=== PATIENT | female | born 1950 | race Caucasian/White ===

== ENCOUNTER 2020-10-05 08:56 | Outpatient (CLI) | payer MEDICARE, OTHER, SELFPAY ==
--- NOTE | 2020-10-05 09:02 | MM_ITS ---
WS: [id number] Exam: [id number] Date/Time of Exam: 10/05/2020 9:03 AM Reason For Exam: SCREENING VIEWS: MLO and CC views both breasts. Comparison made with prior exam of 04/13/2017 and 04/25/2018, 05/29/2019. Findings: There was no sign of mass, architectural distortion or suspicious calcification in either breast. Fa [place]ty MM/[id number] Impression: BI-RADS: 2-Benign FOLLOW-UP: 1 Year Follow-up This mammogram was also analyzed by the Computer Aided Detection System R2 Imag e Solvent Recoverer.
== END 2020-10-05 08:57 | disposition home or self-care (01) ==
LOC: RADSHAW 09:00
PROVIDERS: PCP Internal Medicine; Visit Provider Internal Medicine
DX: Z12.31 Encounter for screening mammogram for malignant neoplasm of breast (principal)
CPT/HCPCS: 77067

== ENCOUNTER 2021-10-27 09:20 | Outpatient (CLI) | payer MEDICARE, OTHER, SELFPAY ==
--- NOTE | 2021-10-27 09:27 | MM_ITS ---
WS: [id number] Bilateral screening 3D tomosynthesis digital mammogram, 10/27/2021 Clinical Data: SCREENING Comparison: 10/05/2020, 05/29/2019, 04/25/2018, 04/13/2017, 03/30/2016, 03/25/2015, 03/18/2014, 3, 02/28/2012, 02/15/2011, 02/10/2010, 02/05/2029, 01/31/2008, 01/29/2007, 01/26/2006. Findings: The breast parenchymal pattern shows fibroglandular tissue. No spiculated masses or clustered calcifi cations are seen. There are no secondary signs of carcinoma. MM/[id number] Impression: 1. Negative bilateral mammogram unchanged. 2. Recommend annual screening mammograms. BIRADS: 1-Negative FOLLOW UP: 1 Year Follow-up The CAD grade checker was used.
== END 2021-10-27 09:21 | disposition home or self-care (01) ==
LOC: RAD 09:23
PROVIDERS: PCP Internal Medicine; Visit Provider Internal Medicine
DX: Z12.31 Encounter for screening mammogram for malignant neoplasm of breast (principal)
CPT/HCPCS: 77063; 77067

== ENCOUNTER 2022-02-02 10:51 | Outpatient (CLI) | payer MEDICARE, OTHER, SELFPAY ==
--- NOTE | 2022-02-02 11:05 | CT_ITS ---
WS: [id number] CT ABDOMEN WITH CONTRAST HISTORY: ELEVATED TRANSAMINASE LEVEL Contiguous single phase 5 mm axial imaging performed to the abdomen. Oral contrast has not been provi ded. Coronal and sagittal reformats are submitted. All CT scans at [facility] use at least on e of these dose optimization techniques: automated exposure control; mA and/or kV adjustment per brice ent size (includes targeted exams where dose is matched to clinical indication); or iterative reconst ruction. CONTRAST: Omnipaque 350; 75 mL IV. DLP: 489.77 mGy.cm COMPARISON: None available. Lower thorax: Lung bases are clear. No cardiomegaly. Liver: Liver extends over length of 17.2 cm. Tim's lobe is evident. There is marked intrahepatic d uct dilatation involving both lobes. No hepatic mass. Portal vein is normally enhancing. Gallbladder: Gallbladder is mildly hydropic extending over length of 9.3 cm. There is very mild gallb ladder wall thickening and enhancement but no mass. Cystic duct is dilated. Common bile duct is dilat ed. Common bile duct measures up to 11.7 mm in diameter. Seen best on the 1 mm reformatted images is a mildly enhancing soft tissue mass in the common bile d uct at the level of the cystic duct confluence. This area of increased enhancement measures 7 x 10 mm . This extends towards the pancreatic head and is contiguous with the fullness in the pancreatic head . Pancreas: There is mild fullness at the pancreatic head. Fullness at the pancreatic head with very sl ight increased enhancement measures 18 x 19 mm. This is asymmetric to the remaining pancreatic body w hich is small caliber. The pancreatic duct is dilated diffusely but only up to 2 mm. Spleen: Normal. Adrenals: Mild thickening of the LEFT adrenal gland. Normal RIGHT adrenal gland. Right kidney: Normal. Left kidney: Too small to characterize hypodensities within the cortex of the visualized kidney. No obstruction. Small extrarenal pelvis. Aorta: Atherosclerotic changes in the aorta. No aneurysm. GI tract: Minimally distended stomach with fluid. No small bowel obstruction. The duodenal C-loop is not opacified with contrast. No obstruction is evident. No definite lymph nodes are identified. Abdominal wall: No hernia. Visualized osseous structures: Unremarkable. CT/CT abdomen w con* [id number] IMPRESSION: 1. Marked intrahepatic and extrahepatic bile duct dilatation. Enhancing lesion measuring 7 x 10 mm in the mid common bile duct just distal to the cystic duct origin. 2. Marked fullness in very slight increased enhancement at the pancreatic head . Suspicious for pancreatic head mass measuring 18 x 19 mm. Suspect this mass e xtends into the common bile duct contributing to the duct dilatation. 3. Gallbladder hydrops. Distended gallbladder with a cystic duct obstruction. Obstruction secondary to a distal CBD duct lesion. 4. ERCP would be most helpful at this time. Notified Ernie Rowe DO at 02/02/2022 12:15 PM.
[2022-02-02] MEDS: iohexol 350 mg/mL 100 mL Btl IV (11:21)
== END 2022-02-02 10:52 | disposition home or self-care (01) ==
PROVIDERS: PCP Internal Medicine; Visit Provider Internal Medicine
DX: R74.01 Elevation of levels of liver transaminase levels (principal)
CPT/HCPCS: 74160

== ENCOUNTER → 2022-04-19 13:02 | Outpatient (BNVA) | payer MEDICARE, OTHER, SELFPAY | PROVIDERS: PCP Internal Medicine; Visit Provider Surgery | DX: C25.9 Malignant neoplasm of pancreas, unspecified (principal) | CPT/HCPCS: 99203 ==

== ENCOUNTER 2022-04-21 09:35 | Day surgery (SDC) | payer MEDICARE, OTHER, SELFPAY ==
--- NOTE | 2022-04-21 | SCC_ITS ---
Procedure done: Mediport insertion 2.6 seconds of fluoroscopic guidance, for a cumulative dose of 0.3 mGy, was provided to Dr. Manuel by the radiology department. C-arm images of the chest were saved for the patient's permanent record. [facility]
[2022-04-21 10:01] VITALS: BP 182/111; PULSE 69; RESP 118; TEMP 36.6; O2SAT 98
[2022-04-21] MEDS: sodium chloride 0.9% 1,000 ML 30 ML IV (10:05)
--- NOTE | 2022-04-21 10:16 | SC_ITS ---
WS: [id number] C-ARM RADIOGRAPHS CHEST; 2 IMAGES HISTORY: Intraoperative imaging COMPARISON: None available. Intraoperative imaging during LEFT Mediport placement. Tip overlies the distal SVC. SC/C-arm [place] CVA [id number] IMPRESSION: Intraoperative imaging during Mediport placement.
--- NOTE | 2022-04-21 10:22 | XR_ITS ---
WS: [email or web address] Portable AP upright chest, 04/21/2022 Clinical Data: post-op Comparison: None. Findings: No nodules, masses or effusions are seen. The heart is normal. The pulmonary vascularity is not increased. No pneumonia or pneumothorax is seen. The aortic arch and descending thoracic aorta s how mild tortuosity. There is a left subclavian catheter in good position ending in the superior vena cava. There is a right biliary stent in the upper abdomen. XR/XR chest 1V portable [id number] Impression: Atherosclerosis.
--- NOTE | 2022-04-21 10:24 | P.ANESASSM_ITS ---
Pre-Anesthetic Assessment Height/Weight: Height 1.63 m Weight 53.07 kg Temp Pulse Resp BP Pulse Ox O2 Del Method 97.9 F 69 118 H 182/111 98 04/21/22 10:01 04/21/22 10:01 04/21/22 10:01 04/21/22 10:01 04/21/22 10:01 04/21/22 10:01 Preop Diagnosis: Pancreatic Cancer Operation Date: 04/21/22 10:50 Proposed Procedures p Portacath Placement 33694,C25.9(Not Applicable) - Valeriano Manuel DO Familial anesthetic complications: PONV Was Beta Tracie taken within 24 hours: N/A Was Clonidine taken within 24 hours: N/A Last intake: Intake Last Liquid Date 04/20/22 Last Liquid Time 19:00 Last Solid Date 04/20/22 Last Solid Time 19:00 Social No alcohol and No tobacco Exam alert, oriented x 3, clear to auscultation bilaterally and regular rate & rhythm Airway Submandibular: within normal limits Cervical ROM: within normal limits Mallampati: Class II Dentition: full Hepatic Pancreatic CA Anesthetic Plan ASA status: 2 Anesthesia: MAC Medications/Allergies Home Medications Medication Instructions Recorded Confirmed Last Taken Type aloe vera 25 mg capsule 25 mg PO DAILY 01/22/21 04/20/22 04/20/22 History herbal drugs 3 tab PO DAILY 01/22/21 04/21/22 04/20/22 History fluticasone propionate 50 1 spray intranasal DAILY 04/13/22 04/20/22 04/20/22 History mcg/actuation nasal spray,suspension (Flonase Allergy Relief) Allergies Allergy/AdvReac Type Severity Reaction Status Date / Time Opioids - Morphine Analogues Allergy Intermediate vomiting Verified 04/20/22 11:38 codeine AdvReac constipatio Verified 04/20/22 11:38 n Current Medications Generic Name Dose Route Start Last Admin Trade Name Freq PRN Reason Stop Dose Admin Sodium Chloride 1,000 mls @ 30 mls/hr 04/21/22 10:00 04/21/22 10:05 Sodium Chloride 0.9% IV 04/22/22 09:59 30 mls/hr .Q24H JONATHAN Administration PFSH Anesthesia Medical History Broken jessica 1974. [facility] FH: total abdominal hysterectomy and bilateral salpingo-oophorectomy Ovarian cancer staging, frozen section of the ovary, pelvic washings, bilateral pelvic lymph node sampling, appendectomy, peritoneal biopsies, partial omentectomy, sheron-diaphragm scrapings, and left ureterolysis. Performed by Dr. 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 Surgical staging performed in 01/2002. Patient received 6 courses of chemotherapy (Taxol/carboplatinum) completed in 06/2002 Hypertension with stress and pain only Surgical History H/O arthroscopy of knee right, torn ligament. Surgery at [facility] in [place], [place] H/O exploratory laparotomy Adhesiolysis for treatment of small bowel obstruction. [place] [facility]. Pacheco [place] [facility] H/O right knee surgery miniscus repair History of tonsillectomy 1970, with adenoidectomy Hx of rectal sphincterotomy anal fissure repair-1987 [place], [place] Family History Family/Other Breast cancer Paternal Aunt Colon cancer Paternal Aunt Sister Breast cancer Mother Transient ischemic attack Father Heart disease Denies family history of Diabetes CAD (coronary artery disease) Clotting disorder Hyperlipidemia Chronic kidney disease (CKD) Bleeding disorder Hypertension Stroke Social History Smoking and tobacco status: never smoked Data Anesthesia Cardiac Studies: No Data to Display
--- NOTE | 2022-04-21 10:25 | W.PM.OPSUD ---
Surgery/Procedure H&P Update DATE OF PROCEDURE: April 21, 2022 DATE H&P PERFORMED: 04/19/22 PREOP DIAGNOSIS: Pancreatic Cancer PLANNED PROCEDURE: Operation Date: 04/21/22 10:50 Proposed Procedures p Portacath Placement 97064,C25.9(Not Applicable) - Valeriano Manuel DO
[2022-04-21] MEDS: ceFAZolin 2,000 MG in sodium chloride 0.9% (plus) 50 ML 100 MG IV (10:35)
[2022-04-21] MEDS: sodium chloride 0.9% 250 mL Bag 100 ML XX (10:49)
[2022-04-21] MEDS: heparin, porcine 1,000 unit/mL INJ 10 mL 10000 UNIT INJECTION (10:49)
--- NOTE | 2022-04-21 11:11 | PM.OP ---
Operative Report Date of procedure: April 21, 2022 Pre-op diagnosis: Preop Diagnosis Pancreatic Cancer Post-op diagnosis: same Procedure done: Mediport insertion Implants: PowerPort Surgeon: Dr. Valeriano Manuel, DO Anesthesia: MAC Estimated blood loss (mL): 5 Complications: None apparent Brief History: This is a very pleasant 71-year-old female who was recently diagnosed with pancreatic cancer. Mediport insertion was indicated. Risks and benefits were explained and documented. Procedure: The Patient was taken to the operating room and placed supine on the operating room table. All bony prominences were padded. She was given IV sedation and monitored throughout the case by the anesthesia personnel. SCDs were placed and turned on. The arms were tucked to the side. Patient received Ancef 2 g preoperatively IV. The bilateral chest wall was prepped and draped in usual sterile fashion using chlorhexidine base prep. Sterile drapes were applied. We did procedure pause prior to beginning. An 18 gauge needle was placed in the right/left subclavian vein. Dark, nonpulsatile blood was aspirated. A guidewire was placed through the needle centrally toward the atrial/vena caval junction. Fluoroscopy visualized good placement. The needle was removed and the guidewire was clipped to the drape with a hemostat. Further local anesthetic was infiltrated in the soft tissues of the right/left chest wall and a #15 blade was used to make a horizontal skin incision. A subcutaneous Mediport pocket was created using Bovie cautery, dissecting down through the skin and subcutaneous tissues. Meticulous hemostasis was achieved. The Mediport was sutured in position using 3-0 vicryl suture x2 stitches.
[2022-04-21 11:12] VITALS: BP 138/81; PULSE 63; RESP 17; TEMP 36.5; O2SAT 97
[2022-04-21 11:15] VITALS: BP 154/72; PULSE 60; RESP 17; O2SAT 99
[2022-04-21 11:20] VITALS: BP 164/85; PULSE 62; RESP 17; TEMP 36.4; O2SAT 98
[2022-04-21 11:42] VITALS: RESP 18; O2SAT 99
[2022-04-21 11:45] VITALS: BP 178/87; PULSE 62; RESP 18; TEMP 36.5; O2SAT 98
--- NOTE | 2022-04-21 15:36 | ANE.PACU2 ---
Inpatient post-anesthesia follow up: Airway intact: Yes Vital signs: Temperature 97.7 F Pulse Rate 62 Respiratory Rate 18 Blood Pressure 178/87 Pulse Oximetry 98 Oxygen Delivery Me thod Room Air Oxygen Flow Rate Fraction of Inspir ed Oxygen Hydration adequate: Yes Nausea and vomiting: No Pain level: 2 Mental status: Baseline
== END 2022-04-21 12:15 | disposition home or self-care (01) ==
PROVIDERS: Family Provider Internal Medicine Hematology & Oncology; PCP Internal Medicine; Visit Provider Surgery
PROC: (CPT 36561; principal; 2022-04-21 10:50)
DX: C25.9 Malignant neoplasm of pancreas, unspecified (principal); I10 Essential (primary) hypertension
CPT/HCPCS: 36561; 71045; 76000; 77001; C1788; J0690; J1100; J1200; J1644; J2405; J2704; J3010; J7030; J7050

== ENCOUNTER 2022-05-10 09:00 | Oncology outpatient (recurring) (ONCR) | payer MEDICARE, OTHER, SELFPAY ==
[2022-04-25 09:27] LABS: Basophils # 0.1 10^3/uL (0.0-0.1); Basophils % 0.7 %; Eosinophils # 0.1 10^3/uL (0.0-0.8); Eosinophils % 1.7 %; Hematocrit 43.2 % (37.0-47.0); Hemoglobin 13.9 g/dL (11.5-15.3); Lymphocytes # 1.3 10^3/uL (0.8-4.8); Lymphocytes % 18.1 %; Mean Corpuscular HGB Conc 32.2 g/dL (30.0-36.0); Mean Corpuscular Hemoglobin 29.1 pg (28.0-34.0); Mean Corpuscular Volume 90.4 fl (81-99); Mean Platelet Volume 11.8 fL (7.4-10.4); Monocytes # 0.4 10^3/uL (0.2-0.9); Monocytes % 6.1 %; Neutrophils # 5.27 10^3/uL (1.8-7.7); Neutrophils % 73.1 %; Nucleated Red Blood Cells % 0 %; Platelet Count 170 10^3/cmm (130-400); Red Blood Count 4.78 10^6/uL (4.1-5.3); Red Cell Distribution Width 13.2 % (12.1-15.1); White Blood Count 7.2 10^3/uL (4.0-10.0)
[2022-04-25 10:13] LABS: Alanine Aminotransferase 30 U/L (0-33); Albumin Level 3.8 g/dL (3.5-5.2); Alkaline Phosphatase 220 U/L (35-105); Anion Gap 12.7 (5-19); Aspartate Amino Transferase 30 U/L (0-32); Blood Urea Nitrogen 18 mg/dL (8-23); CA 125 18.7 U/mL (0-35); Calcium 9.5 mg/dL (8.5-10.5); Cancer Antigen 19 9 8.08 U/mL (0-35); Carbon Dioxide 28 mmol/L (22-29); Chloride 97 mmol/L (98-107); Globulin 3.4 g/dL (1.3-4.6); Glucose 219 mg/dL (65-115); Osmolality Calculated 287 mOsm/kg (285-295); Potassium 3.7 mmol/L (3.5-5.1); Sodium 134 mmol/L (136-145); Total Bilirubin 0.9 mg/dL (0.15-1.2); Total Protein 7.2 g/dL (6.6-8.7)
[2022-04-25] MEDS: sodium chloride 0.9% 250 ML 100 ML IV (10:44)
[2022-04-25] MEDS: palonosetron 0.25 mg/5 mL SDV IVP (10:44)
[2022-04-25] MEDS: famotidine 20 mg/2 mL INJ IVP (10:45)
[2022-04-25] MEDS: paclitaxel protein-bound 190 MG in empty flexible container 1 EACH 76 MG IV (11:12)
[2022-04-25] MEDS: gemcitabine 1,600 MG in sodium chloride 0.9% (100 ml) 100 ML 200 MG IV (11:55)
[2022-04-25 12:41] VITALS: BP 179/96; PULSE 74; RESP 16; TEMP 36.7; O2SAT 98
[2022-05-02 09:54] LABS: Basophils # 0.1 10^3/uL (0.0-0.1); Basophils % 1.1 %; Eosinophils # 0.1 10^3/uL (0.0-0.8); Eosinophils % 3.2 %; Hematocrit 40.3 % (37.0-47.0); Lymphocytes # 1.2 10^3/uL (0.8-4.8); Mean Corpuscular HGB Conc 32.3 g/dL (30.0-36.0); Mean Corpuscular Hemoglobin 28.8 pg (28.0-34.0); Mean Corpuscular Volume 89.4 fl (81-99); Monocytes # 0.3 10^3/uL (0.2-0.9); Monocytes % 5.7 %; Neutrophils # 2.72 10^3/uL (1.8-7.7); Neutrophils % 61.8 %; Nucleated Red Blood Cells % 0 %; Platelet Count 165 10^3/cmm (130-400); Red Blood Count 4.51 10^6/uL (4.1-5.3); Red Cell Distribution Width 12.8 % (12.1-15.1); White Blood Count 4.4 10^3/uL (4.0-10.0)
[2022-05-02 10:23] LABS: Alanine Aminotransferase 35 U/L (0-33); Albumin Level 3.5 g/dL (3.5-5.2); Alkaline Phosphatase 190 U/L (35-105); Anion Gap 16.1 (5-19); Aspartate Amino Transferase 24 U/L (0-32); Blood Urea Nitrogen 16 mg/dL (8-23); Calcium 9.2 mg/dL (8.5-10.5); Carbon Dioxide 26 mmol/L (22-29); Chloride 99 mmol/L (98-107); Globulin 3.1 g/dL (1.3-4.6); Glucose 189 mg/dL (65-115); Osmolality Calculated 290 mOsm/kg (285-295); Potassium 4.1 mmol/L (3.5-5.1); Sodium 137 mmol/L (136-145); Total Bilirubin 0.7 mg/dL (0.15-1.2); Total Protein 6.6 g/dL (6.6-8.7)
[2022-05-02 10:29] LABS: Creatinine Clr Calc Pharmacy 55.0333
[2022-05-03] MEDS: sodium chloride 0.9% 250 ML 100 ML IV (10:59)
[2022-05-03] MEDS: palonosetron 0.25 mg/5 mL SDV IVP (11:01)
[2022-05-03] MEDS: famotidine 20 mg/2 mL INJ IVP (11:03)
[2022-05-03] MEDS: dexamethasone 10 mg/mL INJ 12 MG IVP (11:20)
[2022-05-03] MEDS: gemcitabine 1,600 MG in sodium chloride 0.9% (100 ml) 100 ML 200 MG IV (12:32)
[2022-05-03 13:30] VITALS: BP 185/91; PULSE 75; RESP 16; TEMP 36.3; O2SAT 98
[2022-05-03 16:00] LABS: Estmated Average Glucose 114; Hemoglobin A1C 5.6 % (4.0-6.0)
[2022-05-10 09:28] LABS: Basophils % 0.3 %; Eosinophils % 0.6 %; Hematocrit 39.3 % (37.0-47.0); Lymphocytes # 0.8 10^3/uL (0.8-4.8); Mean Corpuscular HGB Conc 33.1 g/dL (30.0-36.0); Mean Corpuscular Hemoglobin 29.1 pg (28.0-34.0); Mean Corpuscular Volume 88.1 fl (81-99); Mean Platelet Volume 10.5 fL (7.4-10.4); Monocytes # 0.6 10^3/uL (0.2-0.9); Monocytes % 18.3 %; Neutrophils # 2.04 10^3/uL (1.8-7.7); Neutrophils % 58.2 %; Nucleated Red Blood Cells % 0 %; Platelet Count 174 10^3/cmm (130-400); Red Blood Count 4.46 10^6/uL (4.1-5.3); Red Cell Distribution Width 13.2 % (12.1-15.1); White Blood Count 3.5 10^3/uL (4.0-10.0)
[2022-05-10 09:47] LABS: Alanine Aminotransferase 392 U/L (0-33); Albumin Level 3.7 g/dL (3.5-5.2); Alkaline Phosphatase 725 U/L (35-105); Aspartate Amino Transferase 324 U/L (0-32); Blood Urea Nitrogen 13 mg/dL (8-23); Calcium 9.2 mg/dL (8.5-10.5); Carbon Dioxide 24 mmol/L (22-29); Chloride 101 mmol/L (98-107); Creatinine Clr Calc Pharmacy 55.0333; Globulin 3.1 g/dL (1.3-4.6); Glucose 112 mg/dL (65-115); Osmolality Calculated 283 mOsm/kg (285-295); Sodium 136 mmol/L (136-145); Total Protein 6.8 g/dL (6.6-8.7)
[2022-05-10] MEDS: sodium chloride 0.9% 250 ML 100 ML IV (10:50)
[2022-05-10] MEDS: famotidine 20 mg/2 mL INJ IVP (10:50)
[2022-05-10] MEDS: palonosetron 0.25 mg/5 mL SDV IVP (10:52)
[2022-05-10] MEDS: paclitaxel protein-bound 190 MG in empty flexible container 1 EACH 76 MG IV (11:11)
[2022-05-10] MEDS: gemcitabine 1,600 MG in sodium chloride 0.9% (100 ml) 100 ML 200 MG IV (11:50)
[2022-05-10 12:44] VITALS: BP 135/76; PULSE 71; TEMP 37.4; O2SAT 97
== END 2022-05-11 23:59 | disposition home or self-care (01) ==
PROVIDERS: PCP Internal Medicine; Visit Provider Internal Medicine Hematology & Oncology
DX: Z51.11 Encounter for antineoplastic chemotherapy (principal); C25.9 Malignant neoplasm of pancreas, unspecified; Z79.52 Long term (current) use of systemic steroids
CPT/HCPCS: 36591; 80053; 83036; 85025; 86301; 86304; 96367; 96375; 96413; 96417; 99204; 99213; 99214; J1100; J2469; J3490; J7050; J9201; J9264

== ENCOUNTER 2022-06-09 09:41 | Oncology outpatient (recurring) (ONCR) | payer MEDICARE, OTHER, SELFPAY ==
[2022-05-25 09:03] LABS: Hematocrit 38.8 % (37.0-47.0); Hemoglobin 12.4 g/dL (11.5-15.3); Mean Corpuscular Hemoglobin 28.6 pg (28.0-34.0); Mean Corpuscular Volume 89.4 fl (81-99); Platelet Count 756 10^3/cmm (130-400); Red Blood Count 4.34 10^6/uL (4.1-5.3); Red Cell Distribution Width 14.4 % (12.1-15.1); White Blood Count 12.4 10^3/uL (4.0-10.0)
[2022-05-25 09:31] LABS: Alanine Aminotransferase 65 U/L (0-33); Albumin Level 3.3 g/dL (3.5-5.2); Alkaline Phosphatase 461 U/L (35-105); Anion Gap 11.2 (5-19); Aspartate Amino Transferase 38 U/L (0-32); Blood Urea Nitrogen 16 mg/dL (8-23); Calcium 9.4 mg/dL (8.5-10.5); Cancer Antigen 19 9 10.49 U/mL (0-35); Carbon Dioxide 31 mmol/L (22-29); Chloride 100 mmol/L (98-107); Globulin 3.3 g/dL (1.3-4.6); Glucose 135 mg/dL (65-115); Osmolality Calculated 289 mOsm/kg (285-295); Potassium 4.2 mmol/L (3.5-5.1); Sodium 138 mmol/L (136-145); Total Bilirubin 0.8 mg/dL (0.15-1.2); Total Protein 6.6 g/dL (6.6-8.7)
[2022-05-25 09:32] LABS: Slide Review Slide Review Perform
[2022-05-25 09:33] LABS: Total Cells Counted 100 (0-100)
[2022-05-25 09:37] LABS: Absolute Neutrophil 6.9 10^3/cmm (1.4-6.5); Absolute Segmented Neutrophil 6.1 10/cmm (1.6-7.1); Band Neutrophils Absolute 0.9 10^3/cmm (0.0-1.2); Eosinophils 0 %; Giant Platelets Trace; Lymphocytes 21 %; Lymphocytes Absolute 3.6 10^3/cmm (1.2-3.4); Monocytes Absolute 1.6 10^3/cmm (0.1-0.6); Platelet Estimate Increased (Normal); Segmented Neutrophils 49 %
[2022-05-25 09:38] LABS: Anisocytosis 1+; Hypochromasia 1+; Macrocytosis 1+; Microcytosis 1+; Poikilocytosis 1+; Polychromasia 1+; Smudge Cells Trace; Spherocytes 1+
[2022-05-25 09:39] LABS: Ovalocytes Trace; Target Cells Trace; Tear Drop Cells Trace
[2022-05-25 09:40] LABS: Burr Cells Trace
[2022-05-25] MEDS: sodium chloride 0.9% 250 ML 100 ML IV (11:27)
[2022-05-25] MEDS: palonosetron 0.25 mg/5 mL SDV IVP (11:28)
[2022-05-25] MEDS: famotidine 20 mg/2 mL INJ IVP (11:28)
[2022-05-25] MEDS: paclitaxel protein-bound 190 MG in empty flexible container 1 EACH 76 MG IV (12:07)
[2022-05-25] MEDS: gemcitabine 1,600 MG in sodium chloride 0.9% (100 ml) 100 ML 200 MG IV (12:46)
[2022-05-25 13:26] VITALS: BP 168/89; PULSE 73; TEMP 36.7; O2SAT 98
[2022-06-01 10:38] VITALS: BP 151/88; PULSE 83; RESP 16; TEMP 36.2; O2SAT 98
[2022-06-01 10:58] LABS: Basophils # 0.1 10^3/uL (0.0-0.1); Basophils % 1.2 %; Eosinophils % 0.6 %; Hematocrit 36.8 % (37.0-47.0); Hemoglobin 11.8 g/dL (11.5-15.3); Lymphocytes # 1.2 10^3/uL (0.8-4.8); Lymphocytes % 19.2 %; Mean Corpuscular HGB Conc 32.1 g/dL (30.0-36.0); Mean Corpuscular Hemoglobin 28.6 pg (28.0-34.0); Mean Corpuscular Volume 89.3 fl (81-99); Mean Platelet Volume 10.4 fL (7.4-10.4); Monocytes # 0.5 10^3/uL (0.2-0.9); Monocytes % 8.4 %; Neutrophils # 4.51 10^3/uL (1.8-7.7); Nucleated Red Blood Cells % 0 %; Platelet Count 417 10^3/cmm (130-400); Red Blood Count 4.12 10^6/uL (4.1-5.3); Red Cell Distribution Width 14.2 % (12.1-15.1); White Blood Count 6.5 10^3/uL (4.0-10.0)
[2022-06-01 11:25] LABS: Alanine Aminotransferase 64 U/L (0-33); Albumin Level 3.6 g/dL (3.5-5.2); Alkaline Phosphatase 304 U/L (35-105); Anion Gap 12.6 (5-19); Aspartate Amino Transferase 52 U/L (0-32); Blood Urea Nitrogen 13 mg/dL (8-23); Calcium 9.3 mg/dL (8.5-10.5); Carbon Dioxide 29 mmol/L (22-29); Chloride 100 mmol/L (98-107); Glucose 139 mg/dL (65-115); Osmolality Calculated 286 mOsm/kg (285-295); Potassium 4.6 mmol/L (3.5-5.1); Sodium 137 mmol/L (136-145); Total Protein 6.6 g/dL (6.6-8.7)
[2022-06-02] MEDS: sodium chloride 0.9% 250 ML 75 ML IV (08:16)
[2022-06-02] MEDS: palonosetron 0.25 mg/5 mL SDV IVP (08:17)
[2022-06-02] MEDS: famotidine 20 mg/2 mL INJ IVP (08:17)
[2022-06-02] MEDS: paclitaxel protein-bound 190 MG in empty flexible container 1 EACH 76 MG IV (09:03)
[2022-06-02] MEDS: gemcitabine 1,600 MG in sodium chloride 0.9% (100 ml) 100 ML 200 MG IV (09:25)
[2022-06-02 09:47] VITALS: BP 153/73; PULSE 82; RESP 18; TEMP 36.8; O2SAT 97
[2022-06-02 10:00] VITALS: BP 149/78; PULSE 78; RESP 18; TEMP 36.6; O2SAT 97
[2022-06-09 10:04] LABS: Basophils # 0.1 10^3/uL (0.0-0.1); Basophils % 1.7 %; Eosinophils # 0.3 10^3/uL (0.0-0.8); Eosinophils % 8.7 %; Hematocrit 34.4 % (37.0-47.0); Hemoglobin 11.2 g/dL (11.5-15.3); Lymphocytes # 1.1 10^3/uL (0.8-4.8); Lymphocytes % 37.6 %; Mean Corpuscular HGB Conc 32.6 g/dL (30.0-36.0); Mean Corpuscular Hemoglobin 28.6 pg (28.0-34.0); Mean Corpuscular Volume 87.8 fl (81-99); Mean Platelet Volume 10.3 fL (7.4-10.4); Monocytes # 0.3 10^3/uL (0.2-0.9); Monocytes % 10.1 %; Neutrophils # 1.23 10^3/uL (1.8-7.7); Neutrophils % 41.2 %; Nucleated Red Blood Cells % 0 %; Platelet Count 162 10^3/cmm (130-400); Red Blood Count 3.92 10^6/uL (4.1-5.3); Red Cell Distribution Width 14.8 % (12.1-15.1)
[2022-06-09 10:25] LABS: Alanine Aminotransferase 89 U/L (0-33); Albumin Level 3.7 g/dL (3.5-5.2); Alkaline Phosphatase 619 U/L (35-105); Anion Gap 10.7 (5-19); Aspartate Amino Transferase 57 U/L (0-32); Blood Urea Nitrogen 11 mg/dL (8-23); Calcium 9.5 mg/dL (8.5-10.5); Carbon Dioxide 30 mmol/L (22-29); Chloride 100 mmol/L (98-107); Globulin 2.8 g/dL (1.3-4.6); Glucose 138 mg/dL (65-115); Osmolality Calculated 286 mOsm/kg (285-295); Potassium 3.7 mmol/L (3.5-5.1); Sodium 137 mmol/L (136-145); Total Bilirubin 0.9 mg/dL (0.15-1.2); Total Protein 6.5 g/dL (6.6-8.7)
== END 2022-06-11 23:59 | disposition home or self-care (01) ==
PROVIDERS: PCP Internal Medicine; Visit Provider Internal Medicine Hematology & Oncology
DX: C25.8 Malignant neoplasm of overlapping sites of pancreas; D70.1 Agranulocytosis secondary to cancer chemotherapy; R74.01 Elevation of levels of liver transaminase levels; Z79.899 Other long term (current) drug therapy
CPT/HCPCS: 36591; 80053; 85007; 85025; 86301; 96367; 96375; 96413; 96417; 99213; 99214; J1100; J2469; J3490; J7050; J9201; J9264

== ENCOUNTER 2022-07-07 08:00 | Oncology outpatient (recurring) (ONCR) | payer MEDICARE, OTHER, SELFPAY ==
[2022-06-16 08:28] LABS: Basophils # 0.1 10^3/uL (0.0-0.1); Basophils % 1.6 %; Eosinophils # 0.5 10^3/uL (0.0-0.8); Eosinophils % 8.2 %; Hematocrit 38.7 % (37.0-47.0); Hemoglobin 12.3 g/dL (11.5-15.3); Lymphocytes # 2.1 10^3/uL (0.8-4.8); Mean Corpuscular HGB Conc 31.8 g/dL (30.0-36.0); Mean Corpuscular Hemoglobin 28.7 pg (28.0-34.0); Mean Corpuscular Volume 90.2 fl (81-99); Mean Platelet Volume 10.3 fL (7.4-10.4); Monocytes # 0.9 10^3/uL (0.2-0.9); Monocytes % 14.2 %; Neutrophils # 2.46 10^3/uL (1.8-7.7); Neutrophils % 40.2 %; Nucleated Red Blood Cells % 0 %; Platelet Count 325 10^3/cmm (130-400); Red Blood Count 4.29 10^6/uL (4.1-5.3); Red Cell Distribution Width 16.3 % (12.1-15.1); White Blood Count 6.1 10^3/uL (4.0-10.0)
[2022-06-16 08:45] LABS: Alanine Aminotransferase 65 U/L (0-33); Albumin Level 3.7 g/dL (3.5-5.2); Alkaline Phosphatase 655 U/L (35-105); Anion Gap 14.9 (5-19); Aspartate Amino Transferase 30 U/L (0-32); Blood Urea Nitrogen 10 mg/dL (8-23); Carbon Dioxide 29 mmol/L (22-29); Chloride 101 mmol/L (98-107); Globulin 2.8 g/dL (1.3-4.6); Glucose 125 mg/dL (65-115); Osmolality Calculated 293 mOsm/kg (285-295); Potassium 3.9 mmol/L (3.5-5.1); Sodium 141 mmol/L (136-145); Total Bilirubin 0.6 mg/dL (0.15-1.2); Total Protein 6.5 g/dL (6.6-8.7)
[2022-06-16] MEDS: sodium chloride 0.9% 250 ML 100 ML IV (10:46)
[2022-06-16] MEDS: famotidine 20 mg/2 mL INJ IVP (10:47)
[2022-06-16] MEDS: palonosetron 0.25 mg/5 mL SDV IVP (10:49)
[2022-06-16] MEDS: paclitaxel protein-bound 190 MG in empty flexible container 1 EACH 76 MG IV (11:19)
[2022-06-16] MEDS: gemcitabine 1,600 MG in sodium chloride 0.9% (100 ml) 100 ML 200 MG IV (12:05)
[2022-06-16 12:58] VITALS: BP 174/96; PULSE 74; TEMP 37.3; O2SAT 98
[2022-06-23 08:30] LABS: Basophils # 0.1 10^3/uL (0.0-0.1); Basophils % 2.2 %; Eosinophils # 0.1 10^3/uL (0.0-0.8); Eosinophils % 2.5 %; Hematocrit 35.9 % (37.0-47.0); Hemoglobin 11.2 g/dL (11.5-15.3); Lymphocytes # 1.5 10^3/uL (0.8-4.8); Lymphocytes % 36.4 %; Mean Corpuscular HGB Conc 31.2 g/dL (30.0-36.0); Mean Corpuscular Hemoglobin 28.3 pg (28.0-34.0); Mean Corpuscular Volume 90.7 fl (81-99); Mean Platelet Volume 10.6 fL (7.4-10.4); Monocytes # 0.5 10^3/uL (0.2-0.9); Monocytes % 11.7 %; Neutrophils # 1.87 10^3/uL (1.8-7.7); Neutrophils % 46.7 %; Nucleated Red Blood Cells % 0 %; Platelet Count 328 10^3/cmm (130-400); Red Blood Count 3.96 10^6/uL (4.1-5.3); Red Cell Distribution Width 15.6 % (12.1-15.1)
[2022-06-23 09:00] LABS: Alanine Aminotransferase 55 U/L (0-33); Albumin Level 3.6 g/dL (3.5-5.2); Alkaline Phosphatase 439 U/L (35-105); Anion Gap 10.3 (5-19); Aspartate Amino Transferase 38 U/L (0-32); Blood Urea Nitrogen 10 mg/dL (8-23); Calcium 9.6 mg/dL (8.5-10.5); Cancer Antigen 19 9 6.68 U/mL (0-35); Carbon Dioxide 29 mmol/L (22-29); Chloride 102 mmol/L (98-107); Creatinine Clr Calc Pharmacy 54.1095; Globulin 2.6 g/dL (1.3-4.6); Glucose 146 mg/dL (65-115); Osmolality Calculated 286 mOsm/kg (285-295); Potassium 4.3 mmol/L (3.5-5.1); Sodium 137 mmol/L (136-145); Total Bilirubin 0.7 mg/dL (0.15-1.2); Total Protein 6.2 g/dL (6.6-8.7)
[2022-06-23] MEDS: palonosetron 0.25 mg/5 mL SDV IVP (10:25)
[2022-06-23] MEDS: famotidine 20 mg/2 mL INJ IVP (10:26)
[2022-06-23] MEDS: paclitaxel protein-bound 190 MG in empty flexible container 1 EACH 76 MG IV (11:06)
[2022-06-23] MEDS: gemcitabine 1,600 MG in sodium chloride 0.9% (100 ml) 100 ML 200 MG IV (11:41)
[2022-06-23 12:19] VITALS: BP 142/88; PULSE 64; RESP 16; TEMP 36.4; O2SAT 97
[2022-07-07 08:16] VITALS: BMI 19.6
[2022-07-07 08:20] LABS: Basophils # 0.1 10^3/uL (0.0-0.1); Basophils % 0.9 %; Eosinophils # 0.3 10^3/uL (0.0-0.8); Eosinophils % 5.6 %; Hematocrit 35.5 % (37.0-47.0); Lymphocytes # 1.9 10^3/uL (0.8-4.8); Lymphocytes % 33.4 %; Mean Corpuscular Hemoglobin 28.4 pg (28.0-34.0); Mean Corpuscular Volume 91.7 fl (81-99); Mean Platelet Volume 10.4 fL (7.4-10.4); Monocytes # 0.9 10^3/uL (0.2-0.9); Monocytes % 15.5 %; Neutrophils # 2.47 10^3/uL (1.8-7.7); Neutrophils % 43.4 %; Nucleated Red Blood Cells % 0 %; Platelet Count 355 10^3/cmm (130-400); Red Blood Count 3.87 10^6/uL (4.1-5.3); Red Cell Distribution Width 16.6 % (12.1-15.1); White Blood Count 5.7 10^3/uL (4.0-10.0)
[2022-07-07 08:41] LABS: Alanine Aminotransferase 32 U/L (0-33); Albumin Level 3.5 g/dL (3.5-5.2); Alkaline Phosphatase 376 U/L (35-105); Anion Gap 12.1 (5-19); Aspartate Amino Transferase 28 U/L (0-32); Blood Urea Nitrogen 9 mg/dL (8-23); Carbon Dioxide 30 mmol/L (22-29); Chloride 102 mmol/L (98-107); Globulin 2.8 g/dL (1.3-4.6); Glucose 132 mg/dL (65-115); Osmolality Calculated 291 mOsm/kg (285-295); Potassium 4.1 mmol/L (3.5-5.1); Sodium 140 mmol/L (136-145); Total Bilirubin 0.4 mg/dL (0.15-1.2); Total Protein 6.3 g/dL (6.6-8.7)
[2022-07-07] MEDS: sodium chloride 0.9% 250 ML 75 ML IV (10:43)
[2022-07-07] MEDS: famotidine 20 mg/2 mL INJ IVP (10:48)
[2022-07-07] MEDS: palonosetron 0.25 mg/5 mL SDV IVP (10:48)
[2022-07-07] MEDS: paclitaxel protein-bound 190 MG in empty flexible container 1 EACH 76 MG IV (11:25)
[2022-07-07] MEDS: gemcitabine 1,600 MG in sodium chloride 0.9% (100 ml) 100 ML 200 MG IV (12:19)
[2022-07-07 13:15] VITALS: BP 192/94; PULSE 75; RESP 16; TEMP 36.1; O2SAT 99
== END 2022-07-12 23:59 | disposition home or self-care (01) ==
PROVIDERS: PCP Internal Medicine; Visit Provider Internal Medicine Hematology & Oncology
DX: Z51.11 Encounter for antineoplastic chemotherapy (principal); C25.8 Malignant neoplasm of overlapping sites of pancreas; Z79.52 Long term (current) use of systemic steroids; Z79.899 Other long term (current) drug therapy
CPT/HCPCS: 80053; 85025; 86301; 96367; 96375; 96413; 96417; 99214; J1100; J2469; J3490; J7050; J9201; J9264

== ENCOUNTER 2022-08-04 10:00 | Oncology outpatient (recurring) (ONCR) | payer MEDICARE, OTHER, SELFPAY ==
[2022-07-14 08:46] LABS: Basophils # 0.1 10^3/uL (0.0-0.1); Basophils % 1.2 %; Eosinophils # 0.1 10^3/uL (0.0-0.8); Eosinophils % 1.7 %; Hematocrit 35.1 % (37.0-47.0); Hemoglobin 10.9 g/dL (11.5-15.3); Lymphocytes # 1.4 10^3/uL (0.8-4.8); Lymphocytes % 33.5 %; Mean Corpuscular HGB Conc 31.1 g/dL (30.0-36.0); Mean Corpuscular Hemoglobin 28.2 pg (28.0-34.0); Mean Corpuscular Volume 90.9 fl (81-99); Mean Platelet Volume 9.9 fL (7.4-10.4); Monocytes # 0.6 10^3/uL (0.2-0.9); Monocytes % 14.1 %; Neutrophils # 2.02 10^3/uL (1.8-7.7); Neutrophils % 48.3 %; Nucleated Red Blood Cells % 0 %; Platelet Count 397 10^3/cmm (130-400); Red Blood Count 3.86 10^6/uL (4.1-5.3); Red Cell Distribution Width 16.1 % (12.1-15.1); White Blood Count 4.2 10^3/uL (4.0-10.0)
[2022-07-14 09:19] LABS: Alanine Aminotransferase 42 U/L (0-33); Albumin Level 3.5 g/dL (3.5-5.2); Alkaline Phosphatase 289 U/L (35-105); Anion Gap 11.2 (5-19); Aspartate Amino Transferase 39 U/L (0-32); Blood Urea Nitrogen 10 mg/dL (8-23); Calcium 9.1 mg/dL (8.5-10.5); Cancer Antigen 19 9 6.21 U/mL (0-35); Carbon Dioxide 30 mmol/L (22-29); Chloride 102 mmol/L (98-107); Globulin 2.9 g/dL (1.3-4.6); Glucose 112 mg/dL (65-115); Osmolality Calculated 288 mOsm/kg (285-295); Potassium 4.2 mmol/L (3.5-5.1); Sodium 139 mmol/L (136-145); Total Bilirubin 0.4 mg/dL (0.15-1.2); Total Protein 6.4 g/dL (6.6-8.7)
[2022-07-14] MEDS: famotidine 20 mg/2 mL INJ IVP (10:54)
[2022-07-14] MEDS: sodium chloride 0.9% 250 ML 75 ML IV (10:55)
[2022-07-14] MEDS: palonosetron 0.25 mg/5 mL SDV IVP (10:57)
[2022-07-14] MEDS: paclitaxel protein-bound 190 MG in empty flexible container 1 EACH 76 MG IV (11:29)
[2022-07-14] MEDS: gemcitabine 1,600 MG in sodium chloride 0.9% (100 ml) 100 ML 200 MG IV (12:23)
[2022-07-14 13:15] VITALS: BP 167/101; PULSE 67; RESP 17; TEMP 36.8; O2SAT 97
[2022-07-28 08:16] LABS: Basophils # 0.1 10^3/uL (0.0-0.1); Eosinophils # 0.2 10^3/uL (0.0-0.8); Eosinophils % 3.1 %; Hematocrit 35.6 % (37.0-47.0); Hemoglobin 11.1 g/dL (11.5-15.3); Lymphocytes # 1.8 10^3/uL (0.8-4.8); Lymphocytes % 29.9 %; Mean Corpuscular HGB Conc 31.2 g/dL (30.0-36.0); Mean Corpuscular Hemoglobin 28.1 pg (28.0-34.0); Mean Corpuscular Volume 90.1 fl (81-99); Mean Platelet Volume 10.9 fL (7.4-10.4); Monocytes # 1.1 10^3/uL (0.2-0.9); Monocytes % 17.3 %; Neutrophils # 2.91 10^3/uL (1.8-7.7); Neutrophils % 47.9 %; Nucleated Red Blood Cells % 0 %; Platelet Count 316 10^3/cmm (130-400); Red Blood Count 3.95 10^6/uL (4.1-5.3); Red Cell Distribution Width 16.1 % (12.1-15.1); White Blood Count 6.1 10^3/uL (4.0-10.0)
[2022-07-28 08:46] LABS: Alanine Aminotransferase 30 U/L (0-33); Albumin Level 3.7 g/dL (3.5-5.2); Alkaline Phosphatase 314 U/L (35-105); Anion Gap 15.2 (5-19); Aspartate Amino Transferase 28 U/L (0-32); Blood Urea Nitrogen 10 mg/dL (8-23); Carbon Dioxide 27 mmol/L (22-29); Chloride 102 mmol/L (98-107); Creatinine Clr Calc Pharmacy 54.4793; Globulin 2.6 g/dL (1.3-4.6); Glucose 113 mg/dL (65-115); Osmolality Calculated 290 mOsm/kg (285-295); Potassium 4.2 mmol/L (3.5-5.1); Sodium 140 mmol/L (136-145); Total Bilirubin 0.5 mg/dL (0.15-1.2); Total Protein 6.3 g/dL (6.6-8.7)
[2022-07-28 09:11] LABS: Slide Review Slide Review Perform
[2022-07-28] MEDS: sodium chloride 0.9% 250 ML 100 ML IV (12:00)
[2022-07-28] MEDS: palonosetron 0.25 mg/5 mL SDV IVP (12:02)
[2022-07-28] MEDS: famotidine 20 mg/2 mL INJ IVP (12:02)
[2022-07-28] MEDS: paclitaxel protein-bound 190 MG in empty flexible container 1 EACH 76 MG IV (12:37)
[2022-07-28] MEDS: gemcitabine 1,500 MG in sodium chloride 0.9% (100 ml) 100 ML 200 MG IV (13:21)
[2022-07-28 14:28] VITALS: BP 189/96; PULSE 74; TEMP 36.7; O2SAT 98
--- NOTE | 2022-07-28 14:30 | PC.NURSE ---
Pt BP was 189/96. Pt states it was high during OV. Sharonda MYERS was aware of high BP during OV. Pt states it is always elevated when she is here. Pt states she will check it again when she's home and that it will be significantly lower as she does this each time she is here. -PATRICK
[2022-08-04 10:19] VITALS: BMI 19.3
[2022-08-04 10:23] LABS: Basophils # 0.1 10^3/uL (0.0-0.1); Basophils % 1.5 %; Eosinophils # 0.1 10^3/uL (0.0-0.8); Eosinophils % 1.9 %; Hematocrit 34.9 % (37.0-47.0); Hemoglobin 10.8 g/dL (11.5-15.3); Lymphocytes # 1.3 10^3/uL (0.8-4.8); Mean Corpuscular HGB Conc 30.9 g/dL (30.0-36.0); Mean Corpuscular Hemoglobin 28.3 pg (28.0-34.0); Mean Corpuscular Volume 91.4 fl (81-99); Mean Platelet Volume 10.4 fL (7.4-10.4); Monocytes # 0.7 10^3/uL (0.2-0.9); Neutrophils # 2.55 10^3/uL (1.8-7.7); Neutrophils % 53.8 %; Nucleated Red Blood Cells % 0 %; Platelet Count 372 10^3/cmm (130-400); Red Blood Count 3.82 10^6/uL (4.1-5.3); Red Cell Distribution Width 15.8 % (12.1-15.1); White Blood Count 4.7 10^3/uL (4.0-10.0)
[2022-08-04 10:52] LABS: Alanine Aminotransferase 40 U/L (0-33); Albumin Level 3.7 g/dL (3.5-5.2); Alkaline Phosphatase 265 U/L (35-105); Anion Gap 12.3 (5-19); Aspartate Amino Transferase 40 U/L (0-32); Blood Urea Nitrogen 11 mg/dL (8-23); Carbon Dioxide 29 mmol/L (22-29); Chloride 101 mmol/L (98-107); Globulin 2.7 g/dL (1.3-4.6); Glucose 107 mg/dL (65-115); Osmolality Calculated 286 mOsm/kg (285-295); Potassium 4.3 mmol/L (3.5-5.1); Sodium 138 mmol/L (136-145); Total Bilirubin 0.5 mg/dL (0.15-1.2); Total Protein 6.4 g/dL (6.6-8.7)
[2022-08-04] MEDS: sodium chloride 0.9% 250 ML 75 ML IV (12:45)
[2022-08-04] MEDS: famotidine 20 mg/2 mL INJ IVP (12:49)
[2022-08-04] MEDS: palonosetron 0.25 mg/5 mL SDV IVP (12:54)
[2022-08-04] MEDS: paclitaxel protein-bound 190 MG in empty flexible container 1 EACH 76 MG IV (13:22)
[2022-08-04] MEDS: gemcitabine 1,500 MG in sodium chloride 0.9% (100 ml) 100 ML 200 MG IV (14:15)
[2022-08-04 15:13] VITALS: BP 176/91; PULSE 75; TEMP 36.7; O2SAT 98
== END 2022-08-09 23:59 | disposition home or self-care (01) ==
PROVIDERS: PCP Internal Medicine; Visit Provider Internal Medicine Hematology & Oncology
DX: Z51.11 Encounter for antineoplastic chemotherapy (principal); C25.8 Malignant neoplasm of overlapping sites of pancreas; C78.7 Secondary malignant neoplasm of liver and intrahepatic bile duct; K82.1 Hydrops of gallbladder; K82.0 Obstruction of gallbladder; R74.8 Abnormal levels of other serum enzymes; Z79.899 Other long term (current) drug therapy
CPT/HCPCS: 80053; 85025; 86301; 96360; 96367; 96375; 96413; 96417; 99214; J1100; J2469; J3490; J7050; J9201; J9264

== ENCOUNTER 2022-08-22 08:26 | Oncology outpatient (recurring) (ONCR) | payer MEDICARE, OTHER, SELFPAY ==
[2022-08-22 08:51] VITALS: BMI 18.5
[2022-08-22 08:59] LABS: Basophils # 0.1 10^3/uL (0.0-0.1); Basophils % 1.5 %; Eosinophils # 0.2 10^3/uL (0.0-0.8); Eosinophils % 2.2 %; Hematocrit 37.5 % (37.0-47.0); Hemoglobin 11.3 g/dL (11.5-15.3); Lymphocytes # 2.3 10^3/uL (0.8-4.8); Lymphocytes % 26.6 %; Mean Corpuscular HGB Conc 30.1 g/dL (30.0-36.0); Mean Corpuscular Hemoglobin 26.9 pg (28.0-34.0); Mean Corpuscular Volume 89.3 fl (81-99); Mean Platelet Volume 9.9 fL (7.4-10.4); Monocytes # 1.1 10^3/uL (0.2-0.9); Monocytes % 12.2 %; Neutrophils # 4.72 10^3/uL (1.8-7.7); Neutrophils % 55.1 %; Nucleated Red Blood Cells % 0 %; Platelet Count 671 10^3/cmm (130-400); Red Cell Distribution Width 16.4 % (12.1-15.1); White Blood Count 8.6 10^3/uL (4.0-10.0)
[2022-08-22 09:26] LABS: Alanine Aminotransferase 25 U/L (0-33); Albumin Level 3.5 g/dL (3.5-5.2); Alkaline Phosphatase 505 U/L (35-105); Aspartate Amino Transferase 28 U/L (0-32); Blood Urea Nitrogen 10 mg/dL (8-23); Calcium 9.1 mg/dL (8.5-10.5); Carbon Dioxide 29 mmol/L (22-29); Chloride 103 mmol/L (98-107); Globulin 2.9 g/dL (1.3-4.6); Glucose 94 mg/dL (65-115); Osmolality Calculated 295 mOsm/kg (285-295); Sodium 143 mmol/L (136-145); Total Bilirubin 0.4 mg/dL (0.15-1.2); Total Protein 6.4 g/dL (6.6-8.7)
[2022-08-22 11:25] LABS: Cancer Antigen 19 9 11.62 U/mL (0-35)
[2022-08-22] MEDS: famotidine 20 mg/2 mL INJ IVP (11:49)
[2022-08-22] MEDS: palonosetron 0.25 mg/5 mL SDV IVP (11:56)
[2022-08-22] MEDS: sodium chloride 0.9% 250 ML 75 ML IV (12:07)
[2022-08-22] MEDS: paclitaxel protein-bound 190 MG in empty flexible container 1 EACH 76 MG IV (12:10)
[2022-08-22] MEDS: gemcitabine 1,500 MG in sodium chloride 0.9% (100 ml) 100 ML 200 MG IV (12:47)
[2022-08-22 13:30] VITALS: BP 195/90; PULSE 75; RESP 16; TEMP 36.1; O2SAT 97
== END 2022-09-09 23:59 | disposition home or self-care (01) ==
LOC: ONCMED 08:27
PROVIDERS: Nurse Practitioner Family; PCP Internal Medicine; Visit Provider Internal Medicine Hematology & Oncology
DX: Z51.11 Encounter for antineoplastic chemotherapy (principal); C25.8 Malignant neoplasm of overlapping sites of pancreas; Z79.52 Long term (current) use of systemic steroids; Z79.899 Other long term (current) drug therapy
CPT/HCPCS: 80053; 85025; 86301; 96375; 96413; 96417; 99214; J1100; J2469; J3490; J7050; J9201; J9264

== ENCOUNTER 2022-11-02 09:35 | Outpatient (CLI) | payer MEDICARE, OTHER, SELFPAY ==
--- NOTE | 2022-11-02 09:42 | MM_ITS ---
WS: [id number] BILATERAL SCREENING DIGITAL TOMOSYNTHESIS MAMMOGRAM WITH CAD HISTORY: SCREENING COMPARISON: 10/27/2021, 10/05/2020 Bilateral CC and MLO views with tomosynthesis and synthetic mammography submitted. Computer aided det ection analyzed. Breast composition: There are scattered areas of fibroglandular density. No suspicious masses, microc alcifications or architectural distortion. Stable calcifications central LEFT breast. Pectoralis musc les are not included in this examination due to difficulty positioning the patient due to recent clin ical changes. There is a Port-A-Cath partially visualized along the LEFT chest wall. MM/[id number] IMPRESSION: BI-RADS: 2-Benign FOLLOW UP: 1 Year Follow-up
== END 2022-11-02 09:36 | disposition home or self-care (01) ==
PROVIDERS: PCP Internal Medicine; Referring Provider Internal Medicine Hematology & Oncology; Visit Provider Internal Medicine
DX: Z12.31 Encounter for screening mammogram for malignant neoplasm of breast (principal)
CPT/HCPCS: 77063; 77067

== ENCOUNTER 2022-11-09 16:31 | Outpatient (CLI) | payer MEDICARE, OTHER, SELFPAY ==
--- NOTE | 2022-11-09 17:00 | CT_ITS ---
WS: [id number] CT CHEST, ABDOMEN AND PELVIS WITH CONTRAST HISTORY: Follow-up pancreatic cancer. Status post Whipple procedure, cholecystectomy and hysterectomy . TECHNIQUE: Contiguous 5 mm axial imaging performed through the chest, abdomen and pelvis with IV cont rast, oral contrast has been provided. Coronal and sagittal reformats chest. Coronal and sagittal ref ormats through the abdomen and pelvis. All CT scans at [facility] use at least one of these d ose optimization techniques: automated exposure control; mA and/or kV adjustment per patient size (in cludes targeted exams where dose is matched to clinical indication); or iterative reconstruction. CONTRAST: Omnipaque 350; 85 mL IV. DLP: 448.98 mGy.cm COMPARISON: 07/25/[address]: No pulmonary mass or nodule. LEFT subclavian Mediport. Mild atherosclerosis aorta. Normal s ize pulmonary artery. Small mediastinal and hilar lymph nodes. No increase in size or number. Normal axillary lymph nodes. Heart is normal size. No pericardial or pleural effusion. No hiatal hernia. Abdomen CT: Mildly enlarged liver. Low-attenuation nodules in the liver are stable. No metastatic les ions identified. Scattered biliary air. As per history patient has undergone a Whipple procedure. Webber creatic head and mass are no longer evident. Marked atrophy of the main pancreas with pancreatic duct dilatation. No bile duct dilatation. Spleen is normal size. No adrenal mass. Normal size kidneys. Focal scar upper pole LEFT kidney. There is scattered hypodensities within each kidney. Some of these are too small to characterize. Atherosc lerosis aorta. Prior cholecystectomy. Postsurgical changes within the soft tissues of the abdomen from edema. Very little separation of the GI tract loops. No lymph nodes are appreciated. There is mild prominence of the IVC but this may be due to phase of injection and noncontrast opacification. No GI tract obstruction. Marked fecal retent ion. Pelvic CT: No free fluid in the pelvis. Very minimally distended urinary bladder. Increased content w ithin the GI tract. Prior hysterectomy. No destructive bone lesions. Osteopenia. CT/CT chest abdpel w/*[id number] IMPRESSION: 1. Status post Whipple procedure since the prior examination. Postsurgical adrián nges are noted at the pancreatic head. Pancreatic head is no longer evident. Th e remaining pancreas is markedly atrophied with pancreatic duct dilatation. 2. No mesenteric lymph nodes are identified. 3. Pneumobilia and prior cholecystectomy. 4. Diffuse constipation. 5. No metastatic nodules within the lungs. 6. Prior hysterectomy.
[2022-11-09] MEDS: iohexol 350 mg/mL 500 mL Btl (per mL) PO (17:01)
[2022-11-09] MEDS: iohexol 350 mg/mL 500 mL Btl (per mL) IV (17:26)
== END 2022-11-09 16:32 | disposition home or self-care (01) ==
PROVIDERS: PCP Internal Medicine; Visit Provider Nurse Practitioner
DX: C25.9 Malignant neoplasm of pancreas, unspecified (principal)
CPT/HCPCS: 71260; 74177; 96523; J1642; Q9967

== ENCOUNTER → 2022-11-23 08:27 | Outpatient (BNVA) | payer MEDICARE, OTHER, SELFPAY | PROVIDERS: PCP Internal Medicine; Visit Provider Nurse Practitioner Family | DX: Z53.9 Procedure and treatment not carried out, unspecified reason (principal) | CPT/HCPCS: 99214 ==

== ENCOUNTER 2022-12-06 13:00 | Oncology outpatient (recurring) (ONCR) | payer MEDICARE, OTHER, SELFPAY ==
[2022-11-16 08:30] VITALS: BP 179/103; PULSE 65; RESP 18; TEMP 36.6; O2SAT 99
[2022-11-16 08:51] LABS: Basophils # 0.1 10^3/uL (0.0-0.1); Basophils % 0.9 %; Eosinophils # 0.2 10^3/uL (0.0-0.8); Eosinophils % 2.8 %; Hematocrit 38.7 % (37.0-47.0); Hemoglobin 12.2 g/dL (11.5-15.3); Lymphocytes # 1.6 10^3/uL (0.8-4.8); Lymphocytes % 30.6 %; Mean Corpuscular HGB Conc 31.5 g/dL (30.0-36.0); Mean Corpuscular Volume 88.8 fl (81-99); Mean Platelet Volume 11.2 fL (7.4-10.4); Monocytes # 0.5 10^3/uL (0.2-0.9); Monocytes % 8.4 %; Neutrophils # 3.06 10^3/uL (1.8-7.7); Neutrophils % 57.1 %; Nucleated Red Blood Cells % 0 %; Platelet Count 200 10^3/cmm (130-400); Red Blood Count 4.36 10^6/uL (4.1-5.3); White Blood Count 5.4 10^3/uL (4.0-10.0)
[2022-11-16 09:15] LABS: Alanine Aminotransferase 36 U/L (0-33); Albumin Level 4.1 g/dL (3.5-5.2); Alkaline Phosphatase 152 U/L (35-105); Anion Gap 15.1 (5-19); Aspartate Amino Transferase 41 U/L (0-32); Blood Urea Nitrogen 15 mg/dL (8-23); Carbon Dioxide 27 mmol/L (22-29); Chloride 103 mmol/L (98-107); Globulin 2.6 g/dL (1.3-4.6); Glucose 95 mg/dL (65-115); Osmolality Calculated 293 mOsm/kg (285-295); Potassium 4.1 mmol/L (3.5-5.1); Sodium 141 mmol/L (136-145); Total Bilirubin 0.5 mg/dL (0.15-1.2); Total Protein 6.7 g/dL (6.6-8.7)
[2022-11-16] MEDS: sodium chloride 0.9% 250 ML 75 ML IV (11:14)
[2022-11-16] MEDS: palonosetron 0.25 mg/5 mL SDV IVP (11:15)
[2022-11-16] MEDS: famotidine 20 mg/2 mL INJ IVP (11:16)
[2022-11-16] MEDS: paclitaxel protein-bound 180 MG in empty flexible container 1 EACH 72 MG IV (12:24)
[2022-11-16] MEDS: gemcitabine 1,500 MG in sodium chloride 0.9% (100 ml) 100 ML 200 MG IV (13:22)
[2022-11-16 14:20] VITALS: BP 155/90; PULSE 69; RESP 18; TEMP 35.9; O2SAT 96
[2022-11-23 08:57] VITALS: BP 175/92; PULSE 82; RESP 18; TEMP 36.8; O2SAT 97
[2022-11-23 09:33] LABS: Basophils % 1.1 %; Eosinophils # 0.1 10^3/uL (0.0-0.8); Eosinophils % 4.9 %; Hematocrit 35.1 % (37.0-47.0); Hemoglobin 11.1 g/dL (11.5-15.3); Lymphocytes # 1.4 10^3/uL (0.8-4.8); Lymphocytes % 53.9 %; Mean Corpuscular HGB Conc 31.6 g/dL (30.0-36.0); Mean Corpuscular Volume 88.6 fl (81-99); Mean Platelet Volume 11.6 fL (7.4-10.4); Monocytes # 0.2 10^3/uL (0.2-0.9); Monocytes % 6.7 %; Neutrophils % 33.4 %; Nucleated Red Blood Cells % 0 %; Platelet Count 133 10^3/cmm (130-400); Red Blood Count 3.96 10^6/uL (4.1-5.3); Red Cell Distribution Width 14.6 % (12.1-15.1); White Blood Count 2.7 10^3/uL (4.0-10.0)
[2022-11-23 09:42] LABS: Alanine Aminotransferase 28 U/L (0-33); Albumin Level 3.7 g/dL (3.5-5.2); Alkaline Phosphatase 144 U/L (35-105); Anion Gap 11.9 (5-19); Aspartate Amino Transferase 24 U/L (0-32); Blood Urea Nitrogen 14 mg/dL (8-23); Calcium 9.1 mg/dL (8.5-10.5); Carbon Dioxide 28 mmol/L (22-29); Chloride 102 mmol/L (98-107); Globulin 2.5 g/dL (1.3-4.6); Glucose 92 mg/dL (65-115); Osmolality Calculated 286 mOsm/kg (285-295); Potassium 3.9 mmol/L (3.5-5.1); Sodium 138 mmol/L (136-145); Total Bilirubin 0.4 mg/dL (0.15-1.2); Total Protein 6.2 g/dL (6.6-8.7)
[2022-11-23 09:43] LABS: Neutrophils # 0.89 10^3/uL (1.8-7.7)
[2022-11-23] MEDS: filgrastim-sndz 300 mcg/0.5 mL Syringe SUBCUT (13:37)
[2022-11-23 13:49] VITALS: BP 161/83; PULSE 70; RESP 18; TEMP 36.6; O2SAT 97
[2022-11-24] MEDS: filgrastim-sndz 300 mcg/0.5 mL Syringe SUBCUT (08:44)
[2022-11-24 08:47] VITALS: BP 155/80; PULSE 64; RESP 16; TEMP 36.6; O2SAT 98
[2022-11-28 07:46] VITALS: BP 172/79; PULSE 93; RESP 16; TEMP 36.6; O2SAT 98
[2022-11-28 07:53] LABS: Hematocrit 36.5 % (37.0-47.0); Hemoglobin 11.1 g/dL (11.5-15.3); Mean Corpuscular HGB Conc 30.4 g/dL (30.0-36.0); Mean Corpuscular Hemoglobin 27.3 pg (28.0-34.0); Mean Corpuscular Volume 89.7 fl (81-99); Mean Platelet Volume 10.9 fL (7.4-10.4); Platelet Count 146 10^3/cmm (130-400); Red Blood Count 4.07 10^6/uL (4.1-5.3); Red Cell Distribution Width 15.2 % (12.1-15.1); White Blood Count 8.8 10^3/uL (4.0-10.0)
[2022-11-28 08:09] LABS: Alanine Aminotransferase 30 U/L (0-33); Albumin Level 3.8 g/dL (3.5-5.2); Alkaline Phosphatase 197 U/L (35-105); Anion Gap 14.1 (5-19); Aspartate Amino Transferase 29 U/L (0-32); Blood Urea Nitrogen 12 mg/dL (8-23); Calcium 9.1 mg/dL (8.5-10.5); Carbon Dioxide 27 mmol/L (22-29); Chloride 103 mmol/L (98-107); Creatinine Clr Calc Pharmacy 51.8691; Globulin 2.4 g/dL (1.3-4.6); Glucose 116 mg/dL (65-115); Osmolality Calculated 291 mOsm/kg (285-295); Potassium 4.1 mmol/L (3.5-5.1); Sodium 140 mmol/L (136-145); Total Bilirubin 0.3 mg/dL (0.15-1.2); Total Protein 6.2 g/dL (6.6-8.7)
[2022-11-28 09:06] LABS: Slide Review Slide Review Perform
[2022-11-28 09:07] LABS: Absolute Eosinophils 0.3 10^3/cmm (0.0-0.7); Absolute Neutrophil 3.5 10^3/cmm (1.4-6.5); Absolute Segmented Neutrophil 3.1 10/cmm (1.6-7.1); Band Neutrophils Absolute 0.4 10^3/cmm (0.0-1.2); Eosinophils 4 %; Lymphocytes 33 %; Lymphocytes Absolute 3.1 10^3/cmm (1.2-3.4); Monocytes Absolute 0.8 10^3/cmm (0.1-0.6); Platelet Estimate Normal (Normal); Segmented Neutrophils 35 %; Total Cells Counted 100 (0-100)
[2022-11-28 09:09] LABS: Anisocytosis Trace
[2022-11-29 08:24] VITALS: BP 148/85; PULSE 84; RESP 18; TEMP 36.4; O2SAT 98
[2022-11-29] MEDS: sodium chloride 0.9% 250 ML 75 ML IV (09:11)
[2022-11-29] MEDS: famotidine 20 mg/2 mL INJ IVP (09:40)
[2022-11-29] MEDS: palonosetron 0.25 mg/5 mL SDV IVP (09:50)
[2022-11-29] MEDS: paclitaxel protein-bound 180 MG in empty flexible container 1 EACH 72 MG IV (09:59)
[2022-11-29] MEDS: gemcitabine 1,500 MG in sodium chloride 0.9% (100 ml) 100 ML 200 MG IV (10:30)
[2022-11-29 11:28] VITALS: BP 149/72; PULSE 74; RESP 18; TEMP 36.6; O2SAT 98
[2022-11-29 11:40] VITALS: BP 142/89; PULSE 73; RESP 18; TEMP 36.4; O2SAT 98
[2022-11-30 15:30] VITALS: BP 135/78; PULSE 83; RESP 18; TEMP 37.2; O2SAT 97
[2022-11-30] MEDS: filgrastim-sndz 300 mcg/0.5 mL Syringe SUBCUT (15:34)
[2022-11-30 16:00] VITALS: BP 136/74; PULSE 83; RESP 18; TEMP 36.6; O2SAT 98
[2022-12-01 16:11] VITALS: BP 129/83; PULSE 95; RESP 18; TEMP 36.3; O2SAT 97
[2022-12-01] MEDS: filgrastim-sndz 300 mcg/0.5 mL Syringe SUBCUT (16:12)
[2022-12-01 16:15] VITALS: BP 104/78; PULSE 100; RESP 18; TEMP 36.6; O2SAT 98
[2022-12-05 09:05] VITALS: BP 144/76; PULSE 82; RESP 18; TEMP 36.3; O2SAT 99
[2022-12-05 09:28] LABS: Basophils % 0.6 %; Eosinophils % 0.5 %; Hematocrit 33.7 % (37.0-47.0); Hemoglobin 10.5 g/dL (11.5-15.3); Lymphocytes # 1.3 10^3/uL (0.8-4.8); Lymphocytes % 19.5 %; Mean Corpuscular HGB Conc 31.2 g/dL (30.0-36.0); Mean Corpuscular Hemoglobin 27.9 pg (28.0-34.0); Mean Corpuscular Volume 89.6 fl (81-99); Monocytes # 0.3 10^3/uL (0.2-0.9); Monocytes % 4.5 %; Neutrophils # 4.82 10^3/uL (1.8-7.7); Neutrophils % 74.4 %; Nucleated Red Blood Cells % 0 %; Platelet Count 284 10^3/cmm (130-400); Red Blood Count 3.76 10^6/uL (4.1-5.3); Red Cell Distribution Width 14.9 % (12.1-15.1); White Blood Count 6.5 10^3/uL (4.0-10.0)
[2022-12-05 09:55] LABS: Alanine Aminotransferase 26 U/L (0-33); Albumin Level 3.7 g/dL (3.5-5.2); Alkaline Phosphatase 184 U/L (35-105); Aspartate Amino Transferase 23 U/L (0-32); Blood Urea Nitrogen 14 mg/dL (8-23); Calcium 8.9 mg/dL (8.5-10.5); Carbon Dioxide 28 mmol/L (22-29); Chloride 101 mmol/L (98-107); Globulin 2.3 g/dL (1.3-4.6); Glucose 172 mg/dL (65-115); Osmolality Calculated 291 mOsm/kg (285-295); Sodium 138 mmol/L (136-145); Total Bilirubin 0.4 mg/dL (0.15-1.2)
[2022-12-05 09:57] LABS: Creatinine Clr Calc Pharmacy 51.8691
[2022-12-06] MEDS: sodium chloride 0.9% 250 ML 75 ML IV (14:02)
[2022-12-06] MEDS: famotidine 20 mg/2 mL INJ IVP (14:05)
[2022-12-06] MEDS: palonosetron 0.25 mg/5 mL SDV IVP (14:08)
[2022-12-06] MEDS: paclitaxel protein-bound 180 MG in empty flexible container 1 EACH 72 MG IV (14:38)
[2022-12-06] MEDS: gemcitabine 1,500 MG in sodium chloride 0.9% (100 ml) 100 ML 200 MG IV (15:30)
[2022-12-06 16:40] VITALS: BP 144/75; PULSE 72; RESP 18; TEMP 35.7; O2SAT 99
== END 2022-12-06 23:59 | disposition home or self-care (01) ==
PROVIDERS: PCP Internal Medicine; Visit Provider Internal Medicine Hematology & Oncology
DX: Z51.11 Encounter for antineoplastic chemotherapy (principal); C25.9 Malignant neoplasm of pancreas, unspecified
CPT/HCPCS: 96372; 80053; 85007; 85025; 96361; 96367; 96375; 96401; 96413; 96417; 99214; J1100; J1642; J2469; J3490; J7050; J9201; J9264; Q5101

== ENCOUNTER 2023-01-03 08:30 | Oncology outpatient (recurring) (ONCR) | payer MEDICARE, OTHER, SELFPAY ==
[2022-12-20 10:04] VITALS: BP 161/73; PULSE 80; RESP 18; TEMP 37; O2SAT 98
[2022-12-20 10:14] LABS: Basophils # 0.1 10^3/uL (0.0-0.1); Basophils % 2.1 %; Eosinophils # 0.4 10^3/uL (0.0-0.8); Eosinophils % 6.4 %; Hematocrit 32.7 % (37.0-47.0); Hemoglobin 10.2 g/dL (11.5-15.3); Lymphocytes # 1.4 10^3/uL (0.8-4.8); Lymphocytes % 24.6 %; Mean Corpuscular HGB Conc 31.2 g/dL (30.0-36.0); Mean Corpuscular Hemoglobin 27.9 pg (28.0-34.0); Mean Corpuscular Volume 89.3 fl (81-99); Mean Platelet Volume 10.9 fL (7.4-10.4); Monocytes # 0.8 10^3/uL (0.2-0.9); Monocytes % 13.8 %; Neutrophils # 2.94 10^3/uL (1.8-7.7); Neutrophils % 52.6 %; Nucleated Red Blood Cells % 0 %; Platelet Count 289 10^3/cmm (130-400); Red Blood Count 3.66 10^6/uL (4.1-5.3); White Blood Count 5.6 10^3/uL (4.0-10.0)
[2022-12-20 10:45] LABS: Alanine Aminotransferase 18 U/L (0-33); Albumin Level 3.7 g/dL (3.5-5.2); Alkaline Phosphatase 137 U/L (35-105); Anion Gap 12.3 (5-19); Aspartate Amino Transferase 19 U/L (0-32); Blood Urea Nitrogen 15 mg/dL (8-23); Calcium 8.4 mg/dL (8.5-10.5); Cancer Antigen 19 9 6.87 U/mL (0-35); Carbon Dioxide 27 mmol/L (22-29); Chloride 104 mmol/L (98-107); Globulin 2.1 g/dL (1.3-4.6); Glucose 143 mg/dL (65-115); Osmolality Calculated 291 mOsm/kg (285-295); Potassium 4.3 mmol/L (3.5-5.1); Sodium 139 mmol/L (136-145); Total Bilirubin 0.4 mg/dL (0.15-1.2); Total Protein 5.8 g/dL (6.6-8.7)
[2022-12-20] MEDS: sodium chloride 0.9% 250 ML 75 ML IV (12:20)
[2022-12-20] MEDS: famotidine 20 mg/2 mL INJ IVP (12:23)
[2022-12-20] MEDS: palonosetron 0.25 mg/5 mL SDV IVP (12:26)
[2022-12-20] MEDS: paclitaxel protein-bound 190 MG in empty flexible container 1 EACH 76 MG IV (13:14)
[2022-12-20] MEDS: gemcitabine 1,500 MG in sodium chloride 0.9% (100 ml) 100 ML 200 MG IV (13:57)
[2022-12-20 14:45] VITALS: BP 135/84; PULSE 69; RESP 16; TEMP 36.7; O2SAT 98
[2022-12-21] MEDS: filgrastim-sndz 300 mcg/0.5 mL Syringe SUBCUT (15:47)
[2022-12-21 15:50] VITALS: BP 140/78; PULSE 72; RESP 16; TEMP 36.8; O2SAT 98
[2022-12-22] MEDS: filgrastim-sndz 300 mcg/0.5 mL Syringe SUBCUT (15:26)
[2022-12-27 10:04] VITALS: BP 155/89; PULSE 87; RESP 16; TEMP 36.7; O2SAT 99
[2022-12-27 10:24] LABS: Basophils # 0.1 10^3/uL (0.0-0.1); Basophils % 1.3 %; Eosinophils # 0.1 10^3/uL (0.0-0.8); Eosinophils % 1.4 %; Hematocrit 34.1 % (37.0-47.0); Hemoglobin 10.6 g/dL (11.5-15.3); Lymphocytes # 2.1 10^3/uL (0.8-4.8); Lymphocytes % 24.6 %; Mean Corpuscular HGB Conc 31.1 g/dL (30.0-36.0); Mean Corpuscular Hemoglobin 27.7 pg (28.0-34.0); Mean Platelet Volume 11.3 fL (7.4-10.4); Monocytes % 11.8 %; Neutrophils # 4.75 10^3/uL (1.8-7.7); Neutrophils % 57.1 %; Nucleated Red Blood Cells % 0 %; Platelet Count 326 10^3/cmm (130-400); Red Blood Count 3.83 10^6/uL (4.1-5.3); Red Cell Distribution Width 14.9 % (12.1-15.1); White Blood Count 8.3 10^3/uL (4.0-10.0)
[2022-12-27 10:44] LABS: Alanine Aminotransferase 16 U/L (0-33); Albumin Level 3.8 g/dL (3.5-5.2); Alkaline Phosphatase 154 U/L (35-105); Anion Gap 12.2 (5-19); Aspartate Amino Transferase 18 U/L (0-32); Blood Urea Nitrogen 14 mg/dL (8-23); Carbon Dioxide 28 mmol/L (22-29); Chloride 103 mmol/L (98-107); Globulin 2.3 g/dL (1.3-4.6); Glucose 178 mg/dL (65-115); Osmolality Calculated 293 mOsm/kg (285-295); Potassium 4.2 mmol/L (3.5-5.1); Sodium 139 mmol/L (136-145); Total Bilirubin 0.4 mg/dL (0.15-1.2); Total Protein 6.1 g/dL (6.6-8.7)
[2022-12-27 11:00] VITALS: BMI 18.0
[2022-12-27] MEDS: sodium chloride 0.9% 250 ML 75 ML IV (12:20)
[2022-12-27] MEDS: palonosetron 0.25 mg/5 mL SDV IVP (12:21)
[2022-12-27] MEDS: famotidine 20 mg/2 mL INJ IVP (12:30)
[2022-12-27] MEDS: paclitaxel protein-bound 190 MG in empty flexible container 1 EACH 76 MG IV (12:54)
[2022-12-27] MEDS: gemcitabine 1,500 MG in sodium chloride 0.9% (100 ml) 100 ML 200 MG IV (14:28)
[2022-12-27 15:41] VITALS: PULSE 67; RESP 16; TEMP 36; O2SAT 99
[2023-01-03 08:59] VITALS: BP 147/71; PULSE 92; RESP 18; TEMP 36.4; O2SAT 95
[2023-01-03 09:00] VITALS: BMI 17.6
[2023-01-03 09:15] LABS: Basophils % 0.8 %; Eosinophils # 0.3 10^3/uL (0.0-0.8); Eosinophils % 4.9 %; Hemoglobin 9.4 g/dL (11.5-15.3); Lymphocytes # 1.2 10^3/uL (0.8-4.8); Lymphocytes % 24.1 %; Mean Corpuscular HGB Conc 31.3 g/dL (30.0-36.0); Mean Corpuscular Hemoglobin 27.8 pg (28.0-34.0); Mean Corpuscular Volume 88.8 fl (81-99); Mean Platelet Volume 10.8 fL (7.4-10.4); Monocytes # 0.4 10^3/uL (0.2-0.9); Monocytes % 7.2 %; Neutrophils # 3.22 10^3/uL (1.8-7.7); Neutrophils % 62.6 %; Nucleated Red Blood Cells % 0 %; Platelet Count 143 10^3/cmm (130-400); Red Blood Count 3.38 10^6/uL (4.1-5.3); Red Cell Distribution Width 14.8 % (12.1-15.1); White Blood Count 5.1 10^3/uL (4.0-10.0)
[2023-01-03 09:48] LABS: Alanine Aminotransferase 20 U/L (0-33); Albumin Level 3.5 g/dL (3.5-5.2); Alkaline Phosphatase 131 U/L (35-105); Anion Gap 12.1 (5-19); Aspartate Amino Transferase 22 U/L (0-32); Blood Urea Nitrogen 12 mg/dL (8-23); Calcium 8.4 mg/dL (8.5-10.5); Carbon Dioxide 27 mmol/L (22-29); Chloride 102 mmol/L (98-107); Globulin 1.9 g/dL (1.3-4.6); Glucose 109 mg/dL (65-115); Osmolality Calculated 284 mOsm/kg (285-295); Potassium 4.1 mmol/L (3.5-5.1); Sodium 137 mmol/L (136-145); Total Bilirubin 0.5 mg/dL (0.15-1.2); Total Protein 5.4 g/dL (6.6-8.7)
[2023-01-03] MEDS: sodium chloride 0.9% 250 ML 75 ML IV (11:20)
[2023-01-03] MEDS: famotidine 20 mg/2 mL INJ IVP (11:23)
[2023-01-03] MEDS: palonosetron 0.25 mg/5 mL SDV IVP (11:24)
[2023-01-03] MEDS: paclitaxel protein-bound 190 MG in empty flexible container 1 EACH 76 MG IV (12:05)
[2023-01-03 15:00] VITALS: BP 136/78; PULSE 96; TEMP 36.9; O2SAT 98
== END 2023-01-09 23:59 | disposition home or self-care (01) ==
PROVIDERS: Nurse Practitioner Family; PCP Internal Medicine; Visit Provider Internal Medicine Hematology & Oncology
DX: Z51.11 Encounter for antineoplastic chemotherapy (principal); C25.8 Malignant neoplasm of overlapping sites of pancreas; D70.1 Agranulocytosis secondary to cancer chemotherapy; T45.1X5A Adverse effect of antineoplastic and immunosuppressive drugs, initial encounter; L27.1 Localized skin eruption due to drugs and medicaments taken internally; Z79.899 Other long term (current) drug therapy
CPT/HCPCS: 80053; 85025; 86301; 96366; 96367; 96372; 96375; 96413; 96417; 99214; J1100; J1642; J2469; J3490; J7050; J9201; J9264; Q5101

== ENCOUNTER 2023-02-01 10:18 | Outpatient (CLI) | payer MEDICARE, OTHER, SELFPAY ==
[2023-02-01] MEDS: iohexol 350 mg/mL 500 mL Btl (per mL) PO (10:58)
--- NOTE | 2023-02-01 11:00 | CT_ITS ---
WS: [email or web address] CT CHEST, ABDOMEN AND PELVIS WITH CONTRAST HISTORY: Restaging pancreatic cancer and ovarian cancer. TECHNIQUE: Contiguous 5 mm axial imaging performed through the chest, abdomen and pelvis with IV cont rast, oral contrast has been provided. Coronal and sagittal reformats chest. Coronal and sagittal ref ormats through the abdomen and pelvis. All CT scans at [facility] use at least one of these d ose optimization techniques: automated exposure control; mA and/or kV adjustment per patient size (in cludes targeted exams where dose is matched to clinical indication); or iterative reconstruction. CONTRAST: Omnipaque 350; 100 mL IV. DLP: 447.01 mGy.cm COMPARISON: 11/09/[address]: Mild pulmonary hyperinflation. No mass, nodule or pneumonia. No groundglass attenuation. LE FT subclavian Mediport is reidentified. Normal size aorta with mild atherosclerotic changes. Normal s ized pulmonary artery. No mediastinal or hilar adenopathy. Heart remains normal size to slightly enla rged. No pericardial or pleural effusions. Small hiatal hernia. Abdomen CT: Postsurgical changes of a Whipple procedure are evident. Pancreatic head has been removed . The body and tail of the pancreas are severely atrophied with duct dilatation. There is no identifi able pancreatic mass. Pneumobilia is reidentified. No metastatic lesions within the liver. 5 mm cyst medial segment LEFT lobe of the liver. Normal spleen. Very mild thickening of the LEFT adrenal gland. Atherosclerosis aorta. No ascites or adenopathy identified. Prior cholecystectomy. No renal obstruct ion. Cyst lower pole LEFT kidney. Marked fecal retention throughout the colon. No obstruction. Pelvic CT: Prior hysterectomy. No free fluid in the pelvis. Postsurgical clips are noted along the pe lvic sidewalls. No adenopathy is identified. Small lymph nodes may not be difficult to visualize as t here is very little fat the structures of the pelvis. Patent RIGHT inguinal canal contains fat. Urinary bladder is not distended. No destructive metastatic bone lesions are identified by CT. No change in the sclerotic focus RIGHT i lium. IMPRESSION: 1. Prior Whipple procedure. No recurrent mass at the pancreatic head. Continued severe atrophy and du ct dilatation of the remaining pancreas. No mass identified. 2. No metastatic lesions within the lungs or liver. 3. Prior hysterectomy. No evidence for metastatic lymph nodes in the pelvis or retroperitoneum. 4. Diffuse constipation. 5. No pulmonary nodules or adenopathy within the chest. 6. Prior hysterectomy and cholecystectomy.
[2023-02-01] MEDS: iohexol 350 mg/mL 500 mL Btl (per mL) IV (11:14)
== END 2023-02-01 10:19 | disposition home or self-care (01) ==
LOC: RAD 10:21
PROVIDERS: PCP Internal Medicine; Visit Provider Nurse Practitioner Family
DX: C25.9 Malignant neoplasm of pancreas, unspecified (principal)
CPT/HCPCS: 71260; 74177; Q9967

== ENCOUNTER 2023-02-02 09:57 | Oncology outpatient (recurring) (ONCR) | payer MEDICARE, OTHER, SELFPAY ==
[2023-01-10 12:50] VITALS: BMI 17.5
[2023-01-10 12:51] VITALS: BP 135/70; PULSE 58; RESP 17; TEMP 36.6; O2SAT 98
[2023-01-10 13:04] LABS: Basophils % 1.1 %; Eosinophils # 0.1 10^3/uL (0.0-0.8); Eosinophils % 3.7 %; Hematocrit 29.2 % (37.0-47.0); Hemoglobin 9.2 g/dL (11.5-15.3); Lymphocytes # 1.2 10^3/uL (0.8-4.8); Lymphocytes % 33.1 %; Mean Corpuscular HGB Conc 31.5 g/dL (30.0-36.0); Mean Platelet Volume 9.8 fL (7.4-10.4); Monocytes # 0.6 10^3/uL (0.2-0.9); Monocytes % 15.6 %; Neutrophils # 1.59 10^3/uL (1.8-7.7); Neutrophils % 45.1 %; Nucleated Red Blood Cells % 0 %; Platelet Count 175 10^3/cmm (130-400); Red Blood Count 3.28 10^6/uL (4.1-5.3); Red Cell Distribution Width 14.9 % (12.1-15.1); White Blood Count 3.5 10^3/uL (4.0-10.0)
[2023-01-10 13:33] LABS: Alanine Aminotransferase 19 U/L (0-33); Albumin Level 3.6 g/dL (3.5-5.2); Alkaline Phosphatase 127 U/L (35-105); Aspartate Amino Transferase 23 U/L (0-32); Blood Urea Nitrogen 15 mg/dL (8-23); Calcium 8.8 mg/dL (8.5-10.5); Carbon Dioxide 26 mmol/L (22-29); Chloride 105 mmol/L (98-107); Globulin 2.1 g/dL (1.3-4.6); Glucose 112 mg/dL (65-115); Osmolality Calculated 292 mOsm/kg (285-295); Sodium 140 mmol/L (136-145); Total Bilirubin 0.6 mg/dL (0.15-1.2); Total Protein 5.7 g/dL (6.6-8.7)
[2023-01-10 14:05] LABS: Cancer Antigen 19 9 5.41 U/mL (0-35)
[2023-02-02 09:56] VITALS: BMI 17.6
[2023-02-02 09:58] VITALS: BP 182/83; PULSE 76; RESP 16; TEMP 36.6; O2SAT 98
[2023-02-02 10:29] LABS: Basophils # 0.1 10^3/uL (0.0-0.1); Basophils % 0.9 %; Eosinophils # 0.3 10^3/uL (0.0-0.8); Hematocrit 35.1 % (36-47); Lymphocytes # 1.3 10^3/uL (0.8-4.8); Mean Corpuscular HGB Conc 30.5 g/dL (30-55); Mean Corpuscular Hemoglobin 27.9 pg (27-33); Mean Corpuscular Volume 91.4 fl (85-98); Mean Platelet Volume 12.1 fL (7.4-10.4); Monocytes # 0.7 10^3/uL (0.2-0.9); Neutrophils # 5.03 10^3/uL (1.8-7.7); Neutrophils % 67.8 %; Nucleated Red Blood Cells % 0 %; Platelet Count 193 10^3/cmm (157-399); Red Blood Count 3.84 10^6/uL (3.85-5.65); Red Cell Distribution Width 15.3 % (12.1-15.1); White Blood Count 7.42 10^3/uL (3.29-11.43)
[2023-02-02 11:02] LABS: Alanine Aminotransferase 16 U/L (0-33); Alkaline Phosphatase 134 U/L (35-105); Anion Gap 10.9 (5-19); Aspartate Amino Transferase 25 U/L (0-32); Blood Urea Nitrogen 16 mg/dL (8-23); Calcium 8.7 mg/dL (8.5-10.5); Carbon Dioxide 29 mmol/L (22-29); Chloride 102 mmol/L (98-107); Globulin 2.3 g/dL (1.3-4.6); Glucose 171 mg/dL (65-115); Osmolality Calculated 291 mOsm/kg (285-295); Potassium 3.9 mmol/L (3.5-5.1); Sodium 138 mmol/L (136-145); Total Bilirubin 0.8 mg/dL (0.15-1.2); Total Protein 6.3 g/dL (6.6-8.7)
== END 2023-02-09 23:59 | disposition home or self-care (01) ==
PROVIDERS: Nurse Practitioner Family; PCP Internal Medicine; Visit Provider Internal Medicine Medical Oncology
DX: C25.8 Malignant neoplasm of overlapping sites of pancreas; Z51.11 Encounter for antineoplastic chemotherapy; D70.1 Agranulocytosis secondary to cancer chemotherapy; Z53.9 Procedure and treatment not carried out, unspecified reason; C25.9 Malignant neoplasm of pancreas, unspecified; D64.81 Anemia due to antineoplastic chemotherapy; T45.1X5A Adverse effect of antineoplastic and immunosuppressive drugs, initial encounter; Z79.899 Other long term (current) drug therapy; Z92.21 Personal history of antineoplastic chemotherapy; Z92.3 Personal history of irradiation
CPT/HCPCS: 36591; 71260; 74177; 80053; 85025; 86301; 96523; 99214; J1642; Q9967

== ENCOUNTER 2023-03-01 14:00 | Oncology outpatient (recurring) (ONCR) | payer MEDICARE, OTHER, SELFPAY | END 2023-03-11 23:59 | disposition home or self-care (01) | LOC: ONCMED 14:00 | PROVIDERS: PCP Internal Medicine; Visit Provider Internal Medicine Medical Oncology | DX: Z45.2 Encounter for adjustment and management of vascular access device | CPT/HCPCS: 36591; J1642 ==

== ENCOUNTER 2023-05-02 13:47 | Oncology outpatient (recurring) (ONCR) | payer MEDICARE, OTHER, SELFPAY ==
[2023-05-02 13:52] VITALS: BP 134/82; PULSE 81; RESP 16; TEMP 36.8; O2SAT 97
== END 2023-05-11 23:59 | disposition home or self-care (01) ==
PROVIDERS: PCP Internal Medicine; Visit Provider Internal Medicine Medical Oncology
DX: Z45.2 Encounter for adjustment and management of vascular access device
CPT/HCPCS: 96523; J1642

== ENCOUNTER 2023-05-31 14:14 | Oncology outpatient (recurring) (ONCR) | payer MEDICARE, OTHER, SELFPAY ==
[2023-05-31 14:21] VITALS: BP 155/84; PULSE 82; RESP 16; TEMP 36.2; O2SAT 100
== END 2023-06-11 23:59 | disposition home or self-care (01) ==
PROVIDERS: PCP Internal Medicine; Visit Provider Internal Medicine Medical Oncology
DX: Z45.2 Encounter for adjustment and management of vascular access device
CPT/HCPCS: 96523; J1642

== ENCOUNTER 2023-06-07 09:25 | Outpatient (CLI) | payer MEDICARE, OTHER, SELFPAY ==
[2023-06-07 09:57] LABS: Blood Urea Nitrogen 17 mg/dL (8-23)
--- NOTE | 2023-06-07 10:30 | CTR_ITS ---
PROCEDURE INFORMATION: Exam: CT Chest With Contrast; Diagnostic Exam date and time: 06/07/2023 10:35 AM Age: 72 years old Clinical indication: Condition or disease; Pancreas; Other: Pancreatic cancer; Prior surgery; Surgery date: 6+ months; Surgery type: Chest port/whipple/laparotomy/total hysto/rectal sphincterotomy; Additional info: Follow up, to be completed mid April 2023 TECHNIQUE: Imaging protocol: Diagnostic computed tomography of the chest with contrast. Radiation optimization: All CT scans at this facility use at least one of these dose optimization techniques: automated exposure control; mA and/or kV adjustment per patient size (includes targeted exams where dose is matched to clinical indication); or iterative reconstruction. Contrast material: OMNI 350; Contrast volume: 80 ml; Contrast route: INTRAVENOUS (IV); REPORTING DATA: Count of CT and Cardiac NM exams in prior 12 months: This patient has received 3 known CTs and 0 known cardiac nuclear medicine studies in the 12 months prior to the current study. COMPARISON: 1. CT chest abdpel w/*[id number] 02/01/2023 11:[address] chest abdpel w/*[id number] 11/09/2022 5:[address] chest abdpel w/*[id number] 07/25/2022 1:37 PM RADIATION DOSE METRICS: Total DLP (mGy-cm): 441.93 FINDINGS: Tubes, catheters and devices: Left chest port terminates at the SVC. Lungs: Left basilar linear atelectasis versus scarring. No consolidation. No masses. Pleural spaces: Unremarkable. No pneumothorax. No pleural effusion. Heart: Unremarkable. No cardiomegaly. No pericardial effusion. Lymph nodes: No enlarged lymph nodes. Vasculature: Mild systemic atherosclerotic calcification without aortic aneurysm. Bones/joints: No acute fracture. No aggressive osteolytic or blastic lesion. Mild degenerative changes along the spine and shoulders. Soft tissues: Unremarkable. PROCEDURE INFORMATION: Exam: CT Abdomen And Pelvis With Contrast Exam date and time: 06/07/2023 10:35 AM Age: 72 years old Clinical indication: Condition or disease; Pancreas; Other: Pancreatic cancer; Prior surgery; Surgery date: 6+ months; Surgery type: Chest port/whipple/laparotomy/total hysto/rectal sphincterotomy; Additional info: Follow up, to be completed mid April 2023 TECHNIQUE: Imaging protocol: Computed tomography of the abdomen and pelvis with contrast. Radiation optimization: All CT scans at this facility use at least one of these dose optimization techniques: automated exposure control; mA and/or kV adjustment per patient size (includes targeted exams where dose is matched to clinical indication); or iterative reconstruction. Contrast material: OMNI 350; Contrast volume: 80 ml; Contrast route: INTRAVENOUS (IV); REPORTING DATA: Count of CT and Cardiac NM exams in prior 12 months: This patient has received 3 known CTs and 0 known cardiac nuclear medicine studies in the 12 months prior to the current study. COMPARISON: 1. CT chest abdpel w/*[id number] 02/01/2023 11:[address] chest abdpel w/*[id number] 11/09/2022 5:[address] chest abdpel w/*[id number] 07/25/2022 1:[address] abdomen w con* [id number] 03/23/2022 1:47 PM RADIATION DOSE METRICS: Total DLP (mGy-cm): 441.93 FINDINGS: Liver: Couple of subcentimeter hepatic hypodensities too small to characterize are stable from March 2022. Otherwise unremarkable. Gallbladder and bile ducts: Prior cholecystectomy without biliary ductal dilatation. Mild intrahepatic pneumobilia redemonstrated. Pancreas: Postsurgical changes from prior Whipple. Diffuse atrophy and ductal dilatation of the remaining pancreas, stable. Spleen: Normal. Adrenal glands: Normal. No mass. Kidneys and ureters: Stable left renal cyst and bilateral subcentimeter hypodensities too small to characterize, statistically likely benign and require no dedicated imaging follow-up. Otherwise unremarkable. Stomach and bowel: Stable postsurgical changes without obstruction. Appendix: Not confidently visualized but there is no evidence of appendicitis. Intraperitoneal space: No free air, free fluid, or well-organized fluid collection. Vasculature: Mild systemic atherosclerosis without abdominal aortic aneurysm. Lymph nodes: No enlarged lymph nodes. Urinary bladder: Urinary bladder is unremarkable. Reproductive: The uterus is surgically absent. Bones/joints: No acute fracture. No aggressive osteolytic or blastic lesion. Mild degenerative changes along the spine and sacroiliac joints. Stable scattered nonaggressive sclerotic foci compatible with bone islands. Soft tissues: Anterior abdominal wall postsurgical scarring. CT/CT chest abdpel w/*[id number] IMPRESSION: No acute findings or evidence of metastatic disease to the chest. IMPRESSION: 1. Stable postsurgical changes without acute findings, evidence of recurrent or progressive disease. 2. Additional chronic and incidental findings as above.
[2023-06-07] MEDS: iohexol 350 mg/mL 500 mL Btl (per mL) IV (10:32)
[2023-06-07] MEDS: iohexol 350 mg/mL 500 mL Btl (per mL) PO (10:32)
== END 2023-06-07 09:26 | disposition home or self-care (01) ==
LOC: RAD 09:26
PROVIDERS: PCP Internal Medicine; Visit Provider Internal Medicine Medical Oncology
DX: C25.9 Malignant neoplasm of pancreas, unspecified (principal); Z98.890 Other specified postprocedural states; Z90.710 Acquired absence of both cervix and uterus; Z90.49 Acquired absence of other specified parts of digestive tract
CPT/HCPCS: 71260; 74177; 82565; 84520; Q9967

== ENCOUNTER 2023-07-04 12:01 | Oncology outpatient (recurring) (ONCR) | payer MEDICARE, OTHER, SELFPAY ==
[2023-07-04 12:32] VITALS: BP 145/78; PULSE 73; RESP 17; TEMP 36.9; O2SAT 99
[2023-07-04 12:52] LABS: Basophils # 0.1 10^3/uL (0.0-0.1); Eosinophils # 0.1 10^3/uL (0.0-0.8); Eosinophils % 1.2 %; Hematocrit 38.9 % (36-47); Lymphocytes # 1.3 10^3/uL (0.8-4.8); Lymphocytes % 21.6 %; Mean Corpuscular HGB Conc 32.1 g/dL (30-55); Mean Corpuscular Hemoglobin 28.1 pg (27-33); Mean Corpuscular Volume 87.4 fl (85-98); Mean Platelet Volume 11.4 fL (7.4-10.4); Monocytes # 0.4 10^3/uL (0.2-0.9); Monocytes % 7.4 %; Neutrophils # 3.98 10^3/uL (1.8-7.7); Neutrophils % 68.5 %; Nucleated Red Blood Cells % 0 %; Platelet Count 182 10^3/cmm (157-399); Red Blood Count 4.45 10^6/uL (3.85-5.65); Red Cell Distribution Width 15.1 % (12.1-15.1); White Blood Count 5.82 10^3/uL (3.29-11.43)
[2023-07-04 13:19] LABS: Alanine Aminotransferase 31 U/L (0-33); Alkaline Phosphatase 150 U/L (35-105); Anion Gap 13.2 (5-19); Aspartate Amino Transferase 35 U/L (0-32); Blood Urea Nitrogen 17 mg/dL (8-23); Calcium 9.3 mg/dL (8.5-10.5); Carbon Dioxide 27 mmol/L (22-29); Chloride 102 mmol/L (98-107); Globulin 2.8 g/dL (1.3-4.6); Glucose 137 mg/dL (65-115); Osmolality Calculated 290 mOsm/kg (285-295); Potassium 4.2 mmol/L (3.5-5.1); Sodium 138 mmol/L (136-145); Total Protein 6.8 g/dL (6.6-8.7)
== END 2023-07-12 23:59 | disposition home or self-care (01) ==
PROVIDERS: PCP Internal Medicine; Visit Provider Internal Medicine Medical Oncology
DX: C25.8 Malignant neoplasm of overlapping sites of pancreas (principal); D70.1 Agranulocytosis secondary to cancer chemotherapy; Z53.9 Procedure and treatment not carried out, unspecified reason; C25.9 Malignant neoplasm of pancreas, unspecified; D64.81 Anemia due to antineoplastic chemotherapy; T45.1X5A Adverse effect of antineoplastic and immunosuppressive drugs, initial encounter; Z79.899 Other long term (current) drug therapy; Z92.21 Personal history of antineoplastic chemotherapy; Z92.3 Personal history of irradiation; Z45.2 Encounter for adjustment and management of vascular access device
CPT/HCPCS: 36591; 80053; 85025; 86301; 99214; J1642

== ENCOUNTER 2023-08-10 14:52 | Oncology outpatient (recurring) (ONCR) | payer MEDICARE, OTHER, SELFPAY | END 2023-08-10 23:59 | disposition home or self-care (01) | LOC: ONCMED 14:53 | PROVIDERS: PCP Internal Medicine; Visit Provider Internal Medicine Medical Oncology | DX: C25.8 Malignant neoplasm of overlapping sites of pancreas (principal); D70.1 Agranulocytosis secondary to cancer chemotherapy; Z53.9 Procedure and treatment not carried out, unspecified reason; C25.9 Malignant neoplasm of pancreas, unspecified; D64.81 Anemia due to antineoplastic chemotherapy; T45.1X5A Adverse effect of antineoplastic and immunosuppressive drugs, initial encounter; Z79.899 Other long term (current) drug therapy; Z92.21 Personal history of antineoplastic chemotherapy; Z92.3 Personal history of irradiation; Z45.2 Encounter for adjustment and management of vascular access device; Z51.11 Encounter for antineoplastic chemotherapy | CPT/HCPCS: 96523; J1642 ==

== ENCOUNTER 2023-09-05 07:31 | Oncology outpatient (recurring) (ONCR) | payer MEDICARE, OTHER, SELFPAY | END 2023-09-10 23:59 | disposition home or self-care (01) | PROVIDERS: Nurse Practitioner Family; PCP Internal Medicine; Visit Provider Internal Medicine Medical Oncology | DX: C25.9 Malignant neoplasm of pancreas, unspecified | CPT/HCPCS: 36591; 71260; 74177; 82565; J1642; Q9967 ==

== ENCOUNTER 2023-09-05 08:06 | Outpatient (CLI) | payer MEDICARE, OTHER, SELFPAY ==
[2023-09-05] MEDS: iohexol 350 mg/mL 500 mL Btl (per mL) PO (08:50)
[2023-09-05] MEDS: iohexol 350 mg/mL 500 mL Btl (per mL) IV (09:21)
--- NOTE | 2023-09-05 09:30 | CT_ITS ---
WS: [id number] CT CHEST, ABDOMEN, AND PELVIS TECHNIQUE: Contrast-enhanced CT of the chest, abdomen, and pelvis with coronal and sagittal reformatt ed images. CLINICAL INFORMATION: surveillance COMPARISON: CT 06/07/2023 DLP: 468.[address] scans at [facility] use at least one of these dose optimization techniques: automated e xposure control; mA and/or kV adjustment per patient size (includes targeted exams where dose is matc hed to clinical indication); or iterative reconstruction. CT CHEST: Lungs are well aerated. No acute pulmonary infiltrates. No evidence of metastatic disease in the ches t. No mediastinal or hilar lymphadenopathy. Mild chronic emphysematous changes. No suspicious pulmona ry parenchymal abnormalities. No axillary lymphadenopathy. Normal thyroid gland. Normal caliber thora cic aorta. Mild thoracic kyphosis. CT ABDOMEN AND PELVIS: Postoperative changes from prior Whipple procedure. Associated atrophy of the pancreas with stable pa ncreatic duct dilatation. A few low-attenuation lesions in the liver are too small to characterize an d unchanged. Mild diffuse fatty infiltration of the liver. Normal portal vein and splenic vein. Lucille l spleen. Normal GE junction. No evidence of high-grade small or large bowel obstruction. Adrenal gla nds are normal. Normal renal parenchymal enhancement. No hydronephrosis. Cortical scarring LEFT kidne y. Normal caliber abdominal aorta. Aortic calcification. No lymphadenopathy visualized in the abdomen or pelvis. Mild disc bulging L4-L5 and L5-S1. Stable renal cysts. Prior hysterectomy and cholecystectomy. IMPRESSION: 1. No evidence of progressed metastatic disease in the chest abdomen or pelvis. 2. Stable postoperative changes of Whipple procedure. Stable atrophy of the pancreas. 3. Prior hysterectomy and cholecystectomy. 4. No other suspicious findings.
== END 2023-09-05 08:07 | disposition home or self-care (01) ==
LOC: RAD 08:06
PROVIDERS: PCP Internal Medicine; Visit Provider Nurse Practitioner Family
DX: C25.9 Malignant neoplasm of pancreas, unspecified (principal)
CPT/HCPCS: 71260; 74177; Q9967

== ENCOUNTER 2023-10-19 09:20 | Outpatient (CLI) | payer MEDICARE, OTHER, SELFPAY ==
--- NOTE | 2023-10-19 09:32 | XR_ITS ---
WS: [id number] Thoracic spine, 3 views, 10/19/2023 Clinical Data: back pain Comparison: None. Findings: No compression fractures are seen. The disc heights are normal. No metastatic lesions are present. There is minimal osteoarthritic change. There is an infusion rizwan ter entering the left subclavian vein and ending in the superior vena cava. The paravertebral regions are unremarkable. XR/XR thoracic spine 3V* [id number] Impression: 1. 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 2. Negative for metastatic lesions.
== END 2023-10-19 09:21 | disposition home or self-care (01) ==
LOC: RAD 09:21
PROVIDERS: PCP Internal Medicine; Visit Provider Internal Medicine
DX: M54.9 Dorsalgia, unspecified (principal); M47.814 Spondylosis without myelopathy or radiculopathy, thoracic region
CPT/HCPCS: 72072

== ENCOUNTER → 2023-11-02 13:37 | Outpatient (BNVA) | payer MEDICARE, OTHER, SELFPAY | PROVIDERS: PCP Internal Medicine; Visit Provider Orthopaedic Surgery | DX: M54.9 Dorsalgia, unspecified (principal); M54.6 Pain in thoracic spine | CPT/HCPCS: 99204 ==

== ENCOUNTER → 2023-11-14 10:24 | Outpatient (BNVA) | payer MEDICARE, OTHER, SELFPAY | PROVIDERS: PCP Internal Medicine; Visit Provider Orthopaedic Surgery | DX: M54.9 Dorsalgia, unspecified (principal); M48.062 Spinal stenosis, lumbar region with neurogenic claudication | CPT/HCPCS: 99214 ==

== ENCOUNTER 2023-11-28 14:34 | Oncology outpatient (recurring) (ONCR) | payer MEDICARE, OTHER, SELFPAY ==
--- NOTE | 2023-11-03 15:15 | MR_ITS ---
WS: [id number] MRI LUMBAR SPINE WITH CONTRAST TECHNIQUE: Sagittal T1, T2 and STIR imaging. Axial T1 and T2 imaging. Post gadolinium imaging was obt ained. CLINICAL INFORMATION: Back Pain COMPARISON: None. FINDINGS: Mild lumbar curve. No acute compression. Slight anterolisthesis L3 on L4 and L4 on L5. Disc bulging w orse at L3-L4 L4-L5 and L5-S1. Moderate to severe central canal stenosis L3-4 with impingement subart icular recess bilaterally. L1-L2: Mild annular bulging. Mild facet arthropathy. Spinal canal and foramen are patent. L2-L3: Mild annular bulging. Moderate facet arthropathy. Mild LEFT and no significant RIGHT foraminal narrowing. L3-L4: Slight anterolisthesis. Mild disc bulging with shallow central protrusion and small annular fi ssure. Moderate to severe central canal stenosis. Impingement of traversing L4 nerve roots bilaterall y. Moderate facet arthropathy. Mild to moderate bilateral foraminal narrowing. L4-L5: Slight anterolisthesis. Mild disc bulge with mild central canal stenosis. Slight impingement o f the traversing L5 nerve roots bilaterally. Moderate facet arthropathy. Mild LEFT and no significant RIGHT foraminal narrowing. L5-S1: Mild annular bulging with slight impingement on the traversing S1 nerve roots bilaterally. Mil d facet arthropathy. Foramen are patent. Visualized pelvic bony structures: Normal. Paravertebral soft tissues: Normal. MR/MR lumbar spine wo/w con [id number] IMPRESSION: 1. Mild lumbar curve. No acute compression. Slight anterolisthesis L3 on L4 an d L4 on L5. 2. Moderate to severe central canal stenosis L3-4 due to disc bulge with facet arthropathy and ligamentum flavum hypertrophy. Impingement on the traversing L 4 nerve roots bilaterally. 3. Mild central canal stenosis L4-5. 4. Disc bulging L5-S1 slightly impinges the traversing S1 nerve roots bilatera lly. 5. LEFT eccentric disc bulge L2-3 with mild LEFT foraminal narrowing. 6. Small bilateral foraminal protrusions L3-4 with mild to moderate bilateral foraminal narrowing and slight contact of the exiting L3 nerve roots LEFT great er than RIGHT. 7. No abnormal gadolinium enhancement.
[2023-11-03] MEDS: gadobenate dimeglumine 20 mL vial IV (15:48)
--- NOTE | 2023-11-07 09:21 | MM_ITS ---
WS: [email or web address] BILATERAL 3D TOMOSYNTHESIS DIGITAL SCREENING MAMMOGRAPHY WITH CAD CLINICAL INFORMATION: SCREENING HISTORY: Screening mammogram. No current complaints. COMPARISON: 2022 TECHNIQUE: Bilateral CC and MLO views. FINDINGS: Scattered fibroglandular densities bilaterally. No suspicious focal mass, asymmetry, calcifications, or architectural distortion. No evidence of malignancy. A few incidental punctate calcifications. MM/[place] [id number] IMPRESSION: BI-RADS: 2-Benign FOLLOW UP: 1 Year Follow-up Recommend return to annual screening mammography.
--- NOTE | 2023-11-09 14:30 | MR_ITS ---
WS: [id number] MRI THORACIC SPINE noncontrast HISTORY: Back Pain COMPARISON: None available. TECHNIQUE: Multiplanar sequences are performed in sagittal and axial planes. Mild increase in thoracic kyphosis. Disc spaces are mildly and diffusely narrowed throughout the thor acic spine. Small vertebral body osteophytes. No fractures or marrow edema. Signal within the cord is normal. C7-T1: Small central disc protrusion. No contact on the ventral cord. T1-2: Normal. T2-3: Normal. T3-4: Normal. T4-5: Normal. T5-6: Normal. T6-7: Tiny central disc protrusion. T7-8: Small central disc protrusion. Disc protrusion appears bilobed and paracentral. Effacement of v entral CSF. Mild facet arthritis. T8-9: Mild facet arthritis. T9-10: Normal. T10-11: Mild bilateral facet arthritis and foraminal narrowing. T11-12: Mild facet arthritis and foraminal narrowing. MR/MR thoracic spin wo con* [id number] IMPRESSION: 1. No thoracic spine fractures. 2. No high-grade central canal stenosis. 3. Small central disc protrusions at C7-T1 and T6-7. 4. Central bilateral paracentral disc protrusions at T7-8 with effacement of v entral CSF. Mild facet arthritis.
== END 2023-11-28 23:59 | disposition home or self-care (01) ==
PROVIDERS: PCP Internal Medicine; Visit Provider Internal Medicine Medical Oncology
DX: Z53.9 Procedure and treatment not carried out, unspecified reason (principal); Z45.2 Encounter for adjustment and management of vascular access device
CPT/HCPCS: 72146; 72158; 77063; 77067; 96523; A9577

== ENCOUNTER 2024-01-02 12:04 | Oncology outpatient (recurring) (ONCR) | payer MEDICARE, OTHER, SELFPAY | END 2024-01-10 23:59 | disposition home or self-care (01) | PROVIDERS: PCP Internal Medicine; Visit Provider Internal Medicine Medical Oncology | DX: Z45.2 Encounter for adjustment and management of vascular access device (principal); Z53.9 Procedure and treatment not carried out, unspecified reason; Z12.31 Encounter for screening mammogram for malignant neoplasm of breast; M48.061 Spinal stenosis, lumbar region without neurogenic claudication; M47.816 Spondylosis without myelopathy or radiculopathy, lumbar region; M51.36 Other intervertebral disc degeneration, lumbar region | CPT/HCPCS: 96523 ==

== ENCOUNTER 2024-01-18 14:30 | Oncology outpatient (recurring) (ONCR) | payer MEDICARE, OTHER, SELFPAY ==
[2024-01-15 13:37] LABS: Basophils # 0.1 10^3/uL (0.0-0.1); Basophils % 0.7 %; Eosinophils # 0.1 10^3/uL (0.0-0.8); Eosinophils % 0.7 %; Hematocrit 37.7 % (36-47); Lymphocytes # 1.1 10^3/uL (0.8-4.8); Lymphocytes % 15.6 %; Mean Corpuscular HGB Conc 32.4 g/dL (30-55); Mean Corpuscular Hemoglobin 29.1 pg (27-33); Mean Platelet Volume 11.7 fL (7.4-10.4); Monocytes # 0.4 10^3/uL (0.2-0.9); Monocytes % 5.9 %; Neutrophils # 5.44 10^3/uL (1.8-7.7); Nucleated Red Blood Cells % 0 %; Platelet Count 167 10^3/cmm (157-399); Red Blood Count 4.19 10^6/uL (3.85-5.65); Red Cell Distribution Width 13.1 % (12.1-15.1); White Blood Count 7.07 10^3/uL (3.29-11.43)
[2024-01-15 14:03] LABS: Alanine Aminotransferase 21 U/L (0-33); Albumin Level 4.2 g/dL (3.5-5.2); Alkaline Phosphatase 116 U/L (35-105); Anion Gap 17.4 (5-19); Aspartate Amino Transferase 24 U/L (0-32); Blood Urea Nitrogen 27 mg/dL (8-23); Carbon Dioxide 24 mmol/L (22-29); Chloride 103 mmol/L (98-107); Globulin 2.6 g/dL (1.3-4.6); Glucose 206 mg/dL (65-115); Osmolality Calculated 301 mOsm/kg (285-295); Potassium 4.4 mmol/L (3.5-5.1); Sodium 140 mmol/L (136-145); Total Bilirubin 0.7 mg/dL (0.15-1.2); Total Protein 6.8 g/dL (6.6-8.7)
[2024-01-16 08:50] LABS: Estmated Average Glucose 120; Hemoglobin A1C 5.8 % (4.0-6.0)
--- NOTE | 2024-01-18 14:30 | MR_ITS ---
WS: [id number] MRI HEAD WITH CONTRAST TECHNIQUE: Sagittal T1, T2 axial, T2 axial FLAIR, axial susceptibility weighted imaging, axial diffus ion weighted images, and coronal T2 images were obtained. Pre and post-T1 axial and post T1 coronal i mages. ADC and FSPGR images. CLINICAL INFORMATION: dizziness, history of pancreatic cancer COMPARISON: None. FINDINGS: No evidence of restricted diffusion to suggest acute ischemia. Ventricular system and basal cisterns are patent. Mild small vessel changes. Mild parenchymal volume loss. Normal posterior fossa. Normal v ascular flow voids at the skull base. No extra-axial fluid collections. No evidence of mass or mass e ffect. Paranasal sinuses are well aerated. Mastoid air cells are well aerated. Trace fluid in the sph enoid sinus. Small vessel changes in the som. No hemosiderin on the susceptibility weighted images. Normal optic chiasm and pituitary infundibulum. Mild symmetric atrophy temporal lobes and hippocampal formations. No abnormal intracranial enhancement. No evidence of enhancing intracranial metastatic disease. MR/MR head wo/w con [id number] IMPRESSION: 1. No evidence of enhancing intracranial metastatic disease. 2. Mild small vessel changes with mild parenchymal volume loss. Small vessel c hanges in the som. 3. No restricted diffusion to suggest acute ischemia. 4. No other acute findings.
[2024-01-18] MEDS: gadobenate dimeglumine 20 mL vial IV (14:45)
== END 2024-02-10 23:55 | disposition home or self-care (01) ==
LOC: RAD 01-19 → ONCMED 01-25 11:04
PROVIDERS: Nurse Practitioner Family; PCP Internal Medicine; Visit Provider Nurse Practitioner Family
DX: R42 Dizziness and giddiness; Z85.07 Personal history of malignant neoplasm of pancreas
CPT/HCPCS: 36591; 70553; 80053; 83036; 85025; 86301; 99214; A9577

== ENCOUNTER 2024-03-11 12:30 | Oncology outpatient (recurring) (ONCR) | payer MEDICARE, OTHER, SELFPAY ==
--- NOTE | 2024-03-11 12:30 | CT_ITS ---
WS: [id number] CT CHEST, ABDOMEN AND PELVIS WITH CONTRAST HISTORY: surveillance, pancreatic cancer. TECHNIQUE: Contiguous 5 mm axial imaging performed through the chest, abdomen and pelvis with IV cont rast, oral contrast has been provided. Coronal and sagittal reformats chest. Coronal and sagittal ref ormats through the abdomen and pelvis. All CT scans at [facility] use at least one of these d ose optimization techniques: automated exposure control; mA and/or kV adjustment per patient size (in cludes targeted exams where dose is matched to clinical indication); or iterative reconstruction. CONTRAST: Omnipaque 350; 100 mL IV. DLP: 459.84 mGy.cm COMPARISON: 09/05/2023, 06/07/[address]: Lungs are slightly hyperinflated. No pulmonary mass, nodule or pneumonia. No pericardial or pleural effusions. Mild cardiomegaly. LEFT subclavian Mediport. Normal thoracic aorta and pulmonary artery. No mediastinal or hilar adenopathy. No chest wall abnormality. Mild increase in thoracic kyph osis. Degenerative changes at the glenohumeral joints. No destructive bone lesions. Abdomen CT: Status post Whipple procedure. There is a small amount of pneumobilia. Stable too small t o characterize hypodensity in the LEFT lobe of the liver. There is slight dilatation of the intrahepa tic ducts but similar to the prior study. Normal appearance of the spleen. Reidentified is a very tin y hypoechoic too small to characterize density. Marked atrophy of the remaining pancreas. Mild LEFT a drenal gland thickening is similar to prior studies. RIGHT adrenal gland is negative. No renal obstru ction. No solid mass. Atherosclerosis aorta. Mesenteric arteries are normally enhancing. No ascites. No adenopathy is identified. Small lymph nodes or interval change would be difficult to e xclude with paucity of fat. Stomach is not distended. No small bowel obstruction. Diffuse constipation. Pelvic CT: No free fluid in the pelvis. Urinary bladder is well distended. Prior hysterectomy. CT/CT chest abdpel w/*[id number] IMPRESSION: 1. Status post Whipple procedure. Pancreatic atrophy is stable. 2. No evidence for metastatic disease in the chest, abdomen or pelvis. 3. No ascites or adenopathy. 4. Prior hysterectomy and cholecystectomy.
[2024-03-11] MEDS: iohexol 350 mg/mL 500 mL Btl (per mL) PO (13:56)
[2024-03-11] MEDS: iohexol 350 mg/mL 500 mL Btl (per mL) IV (13:56)
== END 2024-03-11 23:59 | disposition home or self-care (01) ==
LOC: RAD 12:34 → ONCMED 03-12 09:14
PROVIDERS: Absent Provider Internal Medicine Medical Oncology; PCP Electrodiagnostic Medicine; Visit Provider Nurse Practitioner Family
DX: Z08 Encounter for follow-up examination after completed treatment for malignant neoplasm; Z90.710 Acquired absence of both cervix and uterus; Z90.49 Acquired absence of other specified parts of digestive tract; K86.89 Other specified diseases of pancreas; Z85.07 Personal history of malignant neoplasm of pancreas; Z53.9 Procedure and treatment not carried out, unspecified reason
CPT/HCPCS: 71260; 74177

== ENCOUNTER 2024-03-27 11:41 | Outpatient (RCR) | payer MEDICARE, OTHER, SELFPAY | END 2024-04-11 23:59 | disposition home or self-care (01) | LOC: SPT 11:41 | PROVIDERS: PCP Electrodiagnostic Medicine; Visit Provider Electrodiagnostic Medicine | DX: H81.10 Benign paroxysmal vertigo, unspecified ear (principal) | CPT/HCPCS: 95992; 97161 ==

== ENCOUNTER 2024-04-22 13:30 | Oncology outpatient (recurring) (ONCR) | payer MEDICARE, OTHER, SELFPAY | END 2024-05-11 23:59 | disposition home or self-care (01) | LOC: ONCMED 13:30 | PROVIDERS: Absent Provider Internal Medicine Hematology & Oncology; PCP Electrodiagnostic Medicine; Visit Provider Nurse Practitioner Family | DX: Z45.2 Encounter for adjustment and management of vascular access device (principal) ==

== ENCOUNTER 2024-04-30 11:53 | Outpatient (CLI) | payer MEDICARE, OTHER, SELFPAY ==
--- NOTE | 2024-04-30 11:55 | USCV_ITS ---
Connie Ray Age: 73 Gender: F : 1950 Exam Date: 04/30/2024 12:18 Ordering Phys: Lucho Osborn DO Technologist: MERLE Exam Location: [facility] [place] Indication: HTN BP: 135 / 80 HR: 57 Rhythm: Sinus Technical Quality: Adequate MEASUREMENTS (Male / Female) Normal Values 2D ECHO LV Diastolic Diameter PLAX 3.3 cm 4.2 - 5.9 / 3.9 - 5.3 cm IVS Diastolic Thickness 1.0 cm 0.6 - 1.0 / 0.6 - 0.9 cm IVS Systolic Thickness 1.7 cm LVPW Diastolic Thickness 1.4 cm 0.6 - 1.0 / 0.6 - 0.9 cm LVPW Systolic Thickness 1.8 cm LVOT Diameter 2.0 cm LV Ejection Fraction 2D Teich 67.3 % LV Ejection Fraction MOD 4C 63.4 % LV Ejection Fraction MOD 2C 67.0 % LV Ejection Fraction 2C AL 66.5 % LA Diameter 2.5 cm RA Systolic Volume 4C AL 38.0 ml RA Systolic Volume 4C MOD 35.0 ml LA Sys Volume AL 35.3 cm cubed LA Sys Volume Index AL 24.1 cm cubed/m squared Aorta at Sinotubular Diameter 2.7 cm IVC Diameter 0.9 cm M-MODE LA Ao Ratio MM 1.0 AV Cusp Separation MM 1.6 cm DOPPLER AV Peak Velocity 123.0 cm/s LVOT Peak Velocity 107.0 cm/s AV Area Cont Eq vti 2.8 cm squared AV Area Cont Eq pk 2.7 cm squared MV Peak Velocity 93.0 cm/s MV Area PHT 2.4 cm squared Mitral E to A Ratio 0.8 TR Peak Velocity 229.5 cm/s TR Peak Gradient 21.1 mmHg TR Mean Velocity 182.0 cm/s TR Mean Gradient 14.7 mmHg TR Velocity Time Integral 81.2 cm TV Peak E Velocity 34.0 cm/s Right Atrial Pressure 3.0 mmHg Pulmonary Artery Systolic Pressu 24.1 mmHg PV Peak Velocity 83.0 cm/s RV Ejection Time 0.3 s FINDINGS Left Ventricle Normal left ventricular size and systolic function, EF 66%. No regional wall motion abnormalities. Grade I/IV diastolic dysfunction (abnormal relaxation filling pattern), normal to mildly elevated filling .mild left ventricular hypertrophy. pressures. Right Ventricle The right ventricle is normal in size and function. Right Atrium The right atrium is normal in size. Left Atrium The left atrium is normal in size. Mitral Valve No gross abnormalities noted Aortic Valve Thickened aortic valve. Tricuspid Valve Trace to mild tricuspid valve regurgitation. Pulmonic Valve Trace pulmonary valve regurgitation. Pericardium Normal pericardium without effusion. Aorta Normal ascending aorta dimension. IVC Normal inferior vena cava. CONCLUSIONS Normal left ventricular size and systolic function, EF 66%. No regional wall motion abnormalities. Mild concentric left-ventricular hypertrophy. Grade I/IV diastolic dysfunction (abnormal relaxation filling pattern), normal to mildly elevated filling pressures. Thickened aortic valve. Trace to mild tricuspid valve regurgitation. Trace pulmonary valve regurgitation. There is no pericardial effusion. There are no intracardiac masses. No similar previous studies are available for comparison Dr Monica Becker MD [facility] (Electronically Signed) Final Date: 02 May 2024 08:58 S
== END 2024-04-30 11:54 | disposition home or self-care (01) ==
LOC: RAD 11:54
PROVIDERS: PCP Electrodiagnostic Medicine; Visit Provider Electrodiagnostic Medicine
DX: I50.30 Unspecified diastolic (congestive) heart failure (principal); I35.0 Nonrheumatic aortic (valve) stenosis; R55 Syncope and collapse
CPT/HCPCS: 93306

== ENCOUNTER 2024-05-22 13:31 | Oncology outpatient (recurring) (ONCR) | payer MEDICARE, OTHER, SELFPAY | END 2024-06-11 23:59 | disposition home or self-care (01) | PROVIDERS: Absent Provider Internal Medicine Medical Oncology; PCP Electrodiagnostic Medicine; Visit Provider Nurse Practitioner Family | DX: Z45.2 Encounter for adjustment and management of vascular access device (principal) | CPT/HCPCS: 96523 ==

== ENCOUNTER 2024-07-03 12:26 | Oncology outpatient (recurring) (ONCR) | payer MEDICARE, OTHER, SELFPAY ==
[2024-07-03 12:47] LABS: Basophils # 0.1 10^3/uL (0.0-0.1); Basophils % 0.7 %; Eosinophils % 0.6 %; Hematocrit 42.1 % (36-47); Lymphocytes # 1.1 10^3/uL (0.8-4.8); Lymphocytes % 16.2 %; Mean Corpuscular HGB Conc 31.8 g/dL (30-55); Mean Corpuscular Hemoglobin 28.6 pg (27-33); Mean Platelet Volume 11.5 fL (7.4-10.4); Monocytes # 0.6 10^3/uL (0.2-0.9); Monocytes % 8.7 %; Neutrophils % 73.5 %; Nucleated Red Blood Cells % 0 %; Platelet Count 175 10^3/cmm (157-399); Red Blood Count 4.68 10^6/uL (3.85-5.65); Red Cell Distribution Width 13.2 % (12.1-15.1); White Blood Count 6.93 10^3/uL (3.29-11.43)
[2024-07-03 13:19] LABS: Alanine Aminotransferase 42 U/L (0-33); Albumin Level 4.3 g/dL (3.5-5.2); Alkaline Phosphatase 157 U/L (35-105); Anion Gap 13.5 (5-19); Aspartate Amino Transferase 41 U/L (0-32); Blood Urea Nitrogen 14 mg/dL (8-23); Calcium 9.2 mg/dL (8.5-10.5); Cancer Antigen 19 9 9.39 U/mL (0-35); Carbon Dioxide 27 mmol/L (22-29); Chloride 102 mmol/L (98-107); Creatinine Clr Calc Pharmacy 52.7207; Globulin 2.7 g/dL (1.3-4.6); Glucose 82 mg/dL (65-115); Osmolality Calculated 286 mOsm/kg (285-295); Potassium 4.5 mmol/L (3.5-5.1); Sodium 138 mmol/L (136-145); Total Bilirubin 0.5 mg/dL (0.15-1.2)
== END 2024-07-12 23:59 | disposition home or self-care (01) ==
PROVIDERS: Absent Provider Internal Medicine Medical Oncology; PCP Electrodiagnostic Medicine; Visit Provider Nurse Practitioner Family
DX: Z53.9 Procedure and treatment not carried out, unspecified reason; Z95.828 Presence of other vascular implants and grafts; Z08 Encounter for follow-up examination after completed treatment for malignant neoplasm; Z85.07 Personal history of malignant neoplasm of pancreas; R73.9 Hyperglycemia, unspecified; R42 Dizziness and giddiness; Z90.49 Acquired absence of other specified parts of digestive tract; Z92.21 Personal history of antineoplastic chemotherapy
CPT/HCPCS: 36591; 80053; 85025; 86301; 99213

== ENCOUNTER 2024-08-28 13:15 | Oncology outpatient (recurring) (ONCR) | payer MEDICARE, OTHER, SELFPAY ==
--- NOTE | 2024-08-21 15:30 | CTR_ITS ---
PROCEDURE INFORMATION: Exam: CT Chest With Contrast; Diagnostic Exam date and time: 08/21/2024 3:50 PM Age: 74 years old Clinical indication: Condition or disease; Pancreatic condition; Other: Pancreatic cancer; Prior surgery; Surgery date: 6+ months; Surgery type: Port, whipple, hyst, rectal fissure, hemrrhoids, adhesions; Additional info: Dr. Brandon Kwong needs this no later than the 08/26/24 TECHNIQUE: Imaging protocol: Diagnostic computed tomography of the chest with contrast. Radiation optimization: All CT scans at this facility use at least one of these dose optimization techniques: automated exposure control; mA and/or kV adjustment per patient size (includes targeted exams where dose is matched to clinical indication); or iterative reconstruction. Contrast material: OMNI 350; Contrast volume: 100 ml; Contrast route: INTRAVENOUS (IV); COMPARISON: CT chest abdpel w/*[id number] 03/11/2024 1:47 PM RADIATION DOSE METRICS: Total DLP (mGy-cm): 459.8 FINDINGS: Tubes, catheters and devices: There is a medication port on the left with its tip within the SVC. Lungs: There is minimal linear scarring or atelectasis involving the lingula. No consolidated infiltrates are appreciated. No lung nodules or masses are noted. Pleural spaces: Unremarkable. No pneumothorax. No pleural effusion. Heart: The heart is slightly enlarged. There is trace pericardial fluid. Lymph nodes: Unremarkable. No enlarged lymph nodes. Vasculature: The thoracic aorta is normal in caliber without aneurysm or dissection. There is minimal if any calcified plaque involving the coronary vessels. Bones/joints: Unremarkable. No acute fracture. Soft tissues: Unremarkable. PROCEDURE INFORMATION: Exam: CT Abdomen And Pelvis With Contrast Exam date and time: 08/21/2024 3:50 PM Age: 74 years old Clinical indication: Condition or disease; Pancreatic condition; Other: Pancreatic cancer; Prior surgery; Surgery date: 6+ months; Surgery type: Port, whipple, hyst, rectal fissure, hemrrhoids, adhesions; Additional info: Dr. Brandon Kwong needs this no later than the 08/26/24 TECHNIQUE: Imaging protocol: Computed tomography of the abdomen and pelvis with contrast. Radiation optimization: All CT scans at this facility use at least one of these dose optimization techniques: automated exposure control; mA and/or kV adjustment per patient size (includes targeted exams where dose is matched to clinical indication); or iterative reconstruction. Contrast material: OMNI 350; Contrast volume: 100 ml; Contrast route: INTRAVENOUS (IV); COMPARISON: CT chest abdpel w/*[id number] 03/11/2024 1:47 PM RADIATION DOSE METRICS: Total DLP (mGy-cm): 459.8 FINDINGS: Lungs: Lung bases are clear as visualized. Esophagus: There is mild wall thickening involving the distal esophagus suggesting the possibility of mild esophagitis. Liver: There is mild fatty infiltration of the liver. There are small benign-appearing hepatic cysts unchanged. Gallbladder and biliary ducts: The gallbladder is not identified. There is pneumobilia. No bile duct dilatation is appreciated. Pancreas: There is atrophy involving the body and tail of the pancreas unchanged. Spleen: Normal. No splenomegaly. Adrenal glands: Normal. No mass. Kidneys and ureters: There are small benign-appearing renal cysts. No renal calculi are identified. No hydronephrosis is noted. Stomach and bowel: No dilated loops of large or small bowel is appreciated. No bowel wall thickening is noted. There is a moderate amount of stool within the colon. Appendix: The appendix is not definitely identified. Intraperitoneal space: Unremarkable. No free air. No significant fluid collection. Vasculature: The aorta is normal in caliber. There is calcified plaque involving the aorta and its branch vessels. Lymph nodes: There are multiple surgical clips within the iliac chain regions bilaterally. Urinary bladder: Unremarkable as visualized. Reproductive: The uterus is not definitely identified. Bones/joints: Unremarkable. No acute fracture. Soft tissues: Unremarkable. Other findings: There are postoperative changes status post Whipple procedure. CT/CT chest abdpel w/*[id number] IMPRESSION: 1. No evidence of metastatic disease. IMPRESSION: 1. Postoperative changes status post Whipple procedure. No definite metastatic disease identified. COMMENTS: Consistent with the [employer]'s Incidental Findings Committee white paper (J Am Zach Radiol 2018): Any incidental renal lesion less than 1 cm or classified as too small to characterize, or any incidental cystic renal lesion characterized as simple-appearing, is likely benign. No follow-up imaging is recommended for these lesions per consensus recommendations based on imaging criteria.
[2024-08-21] MEDS: iohexol 350 mg/mL 500 mL Btl (per mL) PO (16:04)
[2024-08-21] MEDS: iohexol 350 mg/mL 500 mL Btl (per mL) IV (16:05)
[2024-08-28 13:56] LABS: Basophils % 0.5 %; Eosinophils # 0.1 10^3/uL (0.0-0.8); Eosinophils % 0.6 %; Hematocrit 40.6 % (36-47); Lymphocytes # 1.6 10^3/uL (0.8-4.8); Lymphocytes % 19.5 %; Mean Corpuscular HGB Conc 32.3 g/dL (30-55); Mean Corpuscular Hemoglobin 29.5 pg (27-33); Mean Corpuscular Volume 91.4 fl (85-98); Mean Platelet Volume 12.6 fL (7.4-10.4); Monocytes # 0.8 10^3/uL (0.2-0.9); Monocytes % 9.4 %; Neutrophils # 5.86 10^3/uL (1.8-7.7); Neutrophils % 69.6 %; Nucleated Red Blood Cells % 0 %; Platelet Count 168 10^3/cmm (157-399); Red Blood Count 4.44 10^6/uL (3.85-5.65); Red Cell Distribution Width 13.5 % (12.1-15.1); White Blood Count 8.41 10^3/uL (3.29-11.43)
[2024-08-28 14:28] LABS: Alanine Aminotransferase 43 U/L (0-33); Albumin Level 4.2 g/dL (3.5-5.2); Alkaline Phosphatase 160 U/L (35-105); Aspartate Amino Transferase 37 U/L (0-32); Blood Urea Nitrogen 18 mg/dL (8-23); Calcium 8.6 mg/dL (8.5-10.5); Cancer Antigen 19 9 10.57 U/mL (0-35); Carbon Dioxide 26 mmol/L (22-29); Chloride 102 mmol/L (98-107); Globulin 2.4 g/dL (1.3-4.6); Glucose 74 mg/dL (65-115); Lactate Dehydrogenase 190 U/L (135-214); Osmolality Calculated 289 mOsm/kg (285-295); Sodium 139 mmol/L (136-145); Total Bilirubin 0.7 mg/dL (0.15-1.2); Total Protein 6.6 g/dL (6.6-8.7)
== END 2024-09-09 23:59 | disposition home or self-care (01) ==
PROVIDERS: Absent Provider Internal Medicine Medical Oncology; PCP Electrodiagnostic Medicine; Visit Provider Internal Medicine
DX: Z53.9 Procedure and treatment not carried out, unspecified reason (principal); Z08 Encounter for follow-up examination after completed treatment for malignant neoplasm; Z85.07 Personal history of malignant neoplasm of pancreas; R73.9 Hyperglycemia, unspecified; R42 Dizziness and giddiness; Z92.21 Personal history of antineoplastic chemotherapy; Z90.410 Acquired total absence of pancreas; Z95.828 Presence of other vascular implants and grafts
CPT/HCPCS: 36591; 71260; 74177; 80053; 83615; 85025; 86301; 99213

== ENCOUNTER 2024-10-09 10:56 | Oncology outpatient (recurring) (ONCR) | payer MEDICARE, OTHER, SELFPAY | END 2024-10-09 23:59 | disposition home or self-care (01) | PROVIDERS: Absent Provider Internal Medicine Medical Oncology; PCP Electrodiagnostic Medicine; Visit Provider Internal Medicine | DX: Z95.828 Presence of other vascular implants and grafts (principal); Z45.2 Encounter for adjustment and management of vascular access device | CPT/HCPCS: 96523 ==

== ENCOUNTER 2024-11-06 12:36 | Oncology outpatient (recurring) (ONCR) | payer MEDICARE, OTHER, SELFPAY | END 2024-11-09 23:59 | disposition home or self-care (01) | LOC: ONCMED 12:37 | PROVIDERS: Absent Provider Internal Medicine Medical Oncology; PCP Electrodiagnostic Medicine; Visit Provider Internal Medicine | DX: Z45.2 Encounter for adjustment and management of vascular access device (principal); Z95.828 Presence of other vascular implants and grafts | CPT/HCPCS: 96523 ==

== ENCOUNTER 2024-11-07 10:30 | Outpatient (CLI) | payer MEDICARE, OTHER, SELFPAY ==
--- NOTE | 2024-11-07 | MM_ITS ---
WS: [email or web address] BILATERAL 3D TOMOSYNTHESIS DIGITAL SCREENING MAMMOGRAPHY WITH CAD CLINICAL INFORMATION: ANNUAL SCREEN HISTORY: Screening mammogram. No current complaints. COMPARISON: 2023 TECHNIQUE: Bilateral CC and MLO views. FINDINGS: Scattered fibroglandular densities bilaterally. No suspicious focal mass, asymmetry, calcifications, or architectural distortion. No evidence of malignancy. A few incidental calcifications. LEFT Port-A-Cath. MM/MM scr BI tomosynthesis [id number] IMPRESSION: DENSITY: The breasts are heterogeneously dense, which may obscure small masses. BI-RADS: 2 - Benign. FOLLOW UP: 1 Year Follow-up Recommend return to annual screening mammography.
== END 2024-11-07 10:31 | disposition home or self-care (01) ==
PROVIDERS: PCP Electrodiagnostic Medicine; Visit Provider Electrodiagnostic Medicine
DX: Z12.31 Encounter for screening mammogram for malignant neoplasm of breast (principal); R92.323 Mammographic fibroglandular density, bilateral breasts; R92.1 Mammographic calcification found on diagnostic imaging of breast; Z96.89 Presence of other specified functional implants
CPT/HCPCS: 77063; 77067

== ENCOUNTER 2024-12-04 11:50 | Oncology outpatient (recurring) (ONCR) | payer MEDICARE, OTHER, SELFPAY | END 2024-12-09 23:59 | disposition home or self-care (01) | PROVIDERS: Absent Provider Internal Medicine Medical Oncology; PCP Electrodiagnostic Medicine; Visit Provider Internal Medicine | DX: Z53.9 Procedure and treatment not carried out, unspecified reason (principal); Z08 Encounter for follow-up examination after completed treatment for malignant neoplasm; Z85.07 Personal history of malignant neoplasm of pancreas; R73.9 Hyperglycemia, unspecified; R42 Dizziness and giddiness; Z92.21 Personal history of antineoplastic chemotherapy; Z90.410 Acquired total absence of pancreas; Z95.828 Presence of other vascular implants and grafts; C25.9 Malignant neoplasm of pancreas, unspecified | CPT/HCPCS: 36591; 96523 ==

== ENCOUNTER 2025-01-01 10:30 | Oncology outpatient (recurring) (ONCR) | payer MEDICARE, OTHER, SELFPAY | END 2025-01-09 23:59 | disposition home or self-care (01) | PROVIDERS: Absent Provider Internal Medicine Medical Oncology; PCP Electrodiagnostic Medicine; Visit Provider Internal Medicine | DX: Z45.2 Encounter for adjustment and management of vascular access device (principal); Z95.828 Presence of other vascular implants and grafts | CPT/HCPCS: 96523 ==

== ENCOUNTER 2025-01-22 10:30 | Oncology outpatient (recurring) (ONCR) | payer MEDICARE, OTHER, SELFPAY | END 2025-02-09 23:59 | disposition home or self-care (01) | PROVIDERS: Absent Provider Internal Medicine Medical Oncology; PCP Electrodiagnostic Medicine; Visit Provider Internal Medicine | DX: Z45.2 Encounter for adjustment and management of vascular access device (principal); Z95.828 Presence of other vascular implants and grafts | CPT/HCPCS: 96523 ==

== ENCOUNTER 2025-03-05 10:45 | Oncology outpatient (recurring) (ONCR) | payer MEDICARE, OTHER, SELFPAY | END 2025-03-11 23:59 | disposition home or self-care (01) | PROVIDERS: PCP Electrodiagnostic Medicine; Visit Provider Internal Medicine | DX: Z45.2 Encounter for adjustment and management of vascular access device (principal); Z95.828 Presence of other vascular implants and grafts | CPT/HCPCS: 96523 ==

== ENCOUNTER 2025-03-19 11:27 | Oncology outpatient (recurring) (ONCR) | payer MEDICARE, OTHER, SELFPAY ==
[2025-03-19 12:12] LABS: Blood Urea Nitrogen 17 mg/dL (8-23)
--- NOTE | 2025-03-19 12:30 | CTR_ITS ---
PROCEDURE INFORMATION: Exam: CT Chest With Contrast; Diagnostic Exam date and time: 03/19/2025 12:33 PM Age: 74 years old Clinical indication: Condition or disease; Pancreas; Other: Pancreatic cancer, prior surgery; Surgery date: 6+ months; Surgery type: Port, whipple, hyst, rectal fissure, hemrrhoids, adhesions, gb TECHNIQUE: Imaging protocol: Diagnostic computed tomography of the chest with contrast. Radiation optimization: All CT scans at this facility use at least one of these dose optimization techniques: automated exposure control; mA and/or kV adjustment per patient size (includes targeted exams where dose is matched to clinical indication); or iterative reconstruction. Contrast material: OMNI 350; Contrast volume: 80 ml; Contrast route: INTRAVENOUS (IV); COMPARISON: CT chest abdpel w/*[id number] 08/21/2024 3:50 PM RADIATION DOSE METRICS: Total DLP (mGy-cm): 482.89 FINDINGS: Tubes, catheters and devices: A left-sided VAD is in good position with the catheter tip in the lower SVC. Lungs: Unremarkable. No consolidation. No masses. Pleural spaces: Unremarkable. No pneumothorax. No pleural effusion. Heart: Unremarkable. No cardiomegaly. No pericardial effusion. Lymph nodes: Unremarkable. No enlarged lymph nodes. Vasculature: There is a 3.7 cm aneurysm involving the ascending thoracic aorta. Bones/joints: Unremarkable. No acute fracture. Soft tissues: Unremarkable. PROCEDURE INFORMATION: Exam: CT Abdomen And Pelvis With Contrast Exam date and time: 03/19/2025 12:33 PM Age: 74 years old Clinical indication: Condition or disease; Pancreas; Other: Pancreatic cancer, prior surgery; Surgery date: 6+ months; Surgery type: Port, whipple, hyst, rectal fissure, hemrrhoids, adhesions, gb TECHNIQUE: Imaging protocol: Computed tomography of the abdomen and pelvis with contrast. Radiation optimization: All CT scans at this facility use at least one of these dose optimization techniques: automated exposure control; mA and/or kV adjustment per patient size (includes targeted exams where dose is matched to clinical indication); or iterative reconstruction. Contrast material: OMNI 350; Contrast volume: 80 ml; Contrast route: INTRAVENOUS (IV); COMPARISON: CT chest abdpel w/*[id number] 03/11/2024 1:47 PM RADIATION DOSE METRICS: Total DLP (mGy-cm): 482.89 FINDINGS: Lungs: Lung bases are clear. No pleural effusion. Liver: Normal. No mass. Gallbladder and biliary ducts: Pneumobilia is noted. The gallbladder has been resected. Pancreas: Normal. No ductal dilation. Spleen: Normal. No splenomegaly. Adrenal glands: Normal. No mass. Kidneys and ureters: Normal. No hydronephrosis. Stomach and bowel: Unremarkable. No obstruction. No mucosal thickening. Appendix: No evidence of appendicitis. Intraperitoneal space: Unremarkable. No free air. No significant fluid collection. Vasculature: Unremarkable. No abdominal aortic aneurysm. Lymph nodes: Unremarkable. No enlarged lymph nodes. Urinary bladder: Unremarkable as visualized. Reproductive: Unremarkable as visualized. Bones/joints: Unremarkable. No acute fracture. Soft tissues: Unremarkable. Other findings: There is evidence of previous Whipple procedure. CT/CT chest abdpel w/*[id number] IMPRESSION: 1. There is no evidence of active neoplastic disease. 2. Stable aneurysm of the ascending thoracic aorta IMPRESSION: 1. There is no evidence of active neoplastic disease. 2. Surgical changes again noted
[2025-03-19] MEDS: iohexol 350 mg/mL 500 mL Btl (per mL) IV (12:49)
[2025-03-19] MEDS: iohexol 350 mg/mL 500 mL Btl (per mL) PO (12:51)
== END 2025-04-11 23:59 | disposition home or self-care (01) ==
PROVIDERS: PCP Electrodiagnostic Medicine; Visit Provider Internal Medicine
DX: C25.9 Malignant neoplasm of pancreas, unspecified (principal); D70.1 Agranulocytosis secondary to cancer chemotherapy; T45.1X5A Adverse effect of antineoplastic and immunosuppressive drugs, initial encounter; M17.0 Bilateral primary osteoarthritis of knee; M25.569 Pain in unspecified knee
CPT/HCPCS: 36591; 71260; 73560; 73565; 74177; 82565; 84520; 99204

== ENCOUNTER 2025-05-06 11:29 | Oncology outpatient (recurring) (ONCR) | payer MEDICARE, OTHER, SELFPAY | END 2025-05-11 23:59 | disposition home or self-care (01) | LOC: ONCMED 11:30 | PROVIDERS: PCP Electrodiagnostic Medicine; Visit Provider Internal Medicine | DX: Z45.2 Encounter for adjustment and management of vascular access device (principal); Z95.828 Presence of other vascular implants and grafts; C25.9 Malignant neoplasm of pancreas, unspecified; D70.1 Agranulocytosis secondary to cancer chemotherapy; T45.1X5A Adverse effect of antineoplastic and immunosuppressive drugs, initial encounter; M25.561 Pain in right knee; M25.562 Pain in left knee; M17.0 Bilateral primary osteoarthritis of knee | CPT/HCPCS: 96523 ==

== ENCOUNTER → 2025-05-07 09:53 | Outpatient (BNVA) | payer MEDICARE, OTHER, SELFPAY | PROVIDERS: PCP Electrodiagnostic Medicine; Visit Provider Student in an Organized Health Care Education/Training Program | DX: M17.0 Bilateral primary osteoarthritis of knee (principal) | CPT/HCPCS: 20610; 99213; J3301; J7325; J9999 ==

== ENCOUNTER 2025-06-02 12:23 | Oncology outpatient (recurring) (ONCR) | payer MEDICARE, OTHER, SELFPAY | END 2025-06-11 23:59 | disposition home or self-care (01) | PROVIDERS: PCP Electrodiagnostic Medicine; Visit Provider Internal Medicine | DX: Z45.2 Encounter for adjustment and management of vascular access device (principal); Z95.828 Presence of other vascular implants and grafts | CPT/HCPCS: 96523 ==